=== PATIENT | female | born 1960 | race Caucasian/White ===

== ENCOUNTER 2018-08-27 20:45 | Inpatient (IN) | payer MEDICAID, MEDICARE, OTHER ==
[~2018-08-27] VITALS: Ht 182.9 cm; Wt 77.1 kg
[~2018-08-27 20:45] MED LIST: AMBIEN10 M1 ORAL; ARMOUR THYROID30 MG ORAL; IBUPROFEN600 MG ORAL; LAMICTAL150 MG ORAL; OXYCODONE IR15 MG ORAL; RESTORIL30 MG ORAL; ROBAXIN500 MG PO; SUBOXONE 4 MG-1 EACH SL; VALIUM10 MG ORAL; VITAMIN D400 INTLU ORAL
[2018-08-27] MEDS ORDERED: Morphine Sulfate 4mg/ml Inj (IV USE ONLY) IVP ONE ×2 (21:00→21:30)
--- NOTE | 2018-08-27 21:00 | NUR ---
ED Nurse Note: iv access established. blood collected; sent down to lab.
--- NOTE | 2018-08-27 21:03 | Emergency Room Report ---
History of Present Illness General Chief Complaint: Abdominal Pain Source: Patient Present Illness HPI Is is a 58-year-old female with history of depression. She presents with chief complaint abdominal pain. Onset for a few weeks now. Has been intermittent on and off. She thought it was indigestion. Pain is mostly epigastric and right upper quadrant. For the last 2 days ago more constant. Waiting to the back. Now she has nausea and vomiting. Also very itching. Pain is 9 out of 10. Nothing made it better. Any movement or palpation made it worse. Eating made it worse. Allergies: Coded Allergies: MEPERIDINE (Verified Allergy, Mild, Rash, 01/06/17) itching skin severe Patient History Past Medical History: see triage record, old chart reviewed, psych hx Past Surgical History: none Pertinent Family History: none Social History: Denies: smoking Last Menstrual Period: 2008 Now: No Immunizations: other Reviewed Nursing Documentation: PMH: Agreed; PSxH: Agreed Review of Systems Eye: Denies: eye pain, blurred vision ENT: Denies: ear pain, nose congestion, throat swelling Respiratory: Denies: cough, shortness of breath Cardiovascular: Denies: chest pain, palpitations Gastrointestinal: Reports: abdominal pain, nausea, vomiting; Denies: diarrhea Musculoskeletal: Denies: back pain, joint pain Skin: Denies: rash Neurological: Denies: headache, numbness Endocrine: Denies: increased thirst, increased urine Hematologic/Lymphatic: Denies: easy bruising All Other Systems: negative except mentioned in HPI Physical Exam Vital Signs Date Time Temp Pulse Resp B/P (MAP) Pulse Ox O2 Delivery O2 Flow Rate FiO2 08/27/18 20:47 98.2 77 14 96 Room Air vital signs unremarkable Sp02 EP Interpretation: reviewed, normal General Appearance: well appearing, no apparent distress, alert Head: normocephalic, atraumatic Eyes: bilateral eye PERRL, bilateral eye EOMI ENT: hearing grossly normal, normal pharynx Neck: full range of motion, supple, no meningismus Respiratory: chest non-tender, lungs clear, normal breath sounds Cardiovascular #1: regular rate, rhythm, no murmur Gastrointestinal: normal bowel sounds, no mass, no organomegaly, no bruit, non- distended, tenderness - Upper quadrants Musculoskeletal: back normal, gait/station normal, normal range of motion Psychiatric: mood/affect normal Skin: warm/dry, other - Mild jaundice Medical Decision Making Diagnostic Impression: Primary Impression: Choledocholithiasis ER Course Right fifth toe: She has lateral deviation of the toe at the MTP joint. Dorsalis pedis pulse normal. Sensation normal. Patient presents with right upper quadrant pain. She does have some mild jaundice and labs showed an obstructed process in the biliary tree. CT scan showed distended gallbladder and distended common bile duct. No obvious stone. I see no evidence of any infection yet. No evidence of any cholecystitis or cholangitis. Patient will be admitted for further workup. Discussed the case with her primary care Dr. Lamb. I faxed him the CT scan report and labs. I discussed the case with who will admit for Dr. Hunter. Lab Results Impression labs with elevated bilirubin and LFTs CT/MRI/US Diagnostic Results CT/MRI/US Diagnostic Results : Imaging Test Ordered: CT abdomen and pelvis Impression Read by radiologist. Distended gallbladder with distended common bile duct and biliary tree. No obvious stone. Last Vital Signs Date Time Temp Pulse Resp B/P (MAP) Pulse Ox O2 Delivery O2 Flow Rate FiO2 08/27/18 20:47 98.2 77 14 96 Room Air Status: improved Disposition: ADMITTED INPATIENT Condition: Serious Selvin Greene MD August 27, 2018 21:03
[2018-08-27 21:05] VITALS: BP 115/66
--- NOTE | 2018-08-27 21:05 | NUR ---
ED Nurse Note: Patient walked in to ER c/o severe abdominal pain 12/19 since this morning, N/V/D. AAO x4, VSS at this time. Per patienrt she has some kind of skin infection and due to that she has leisions all over her body.
[2018-08-27 21:20] LABS: BASOPHILS % (AUTO) 0.6 % (0.0-2.0); HEMATOCRIT 40.3 % (37.0-47.0); HEMOGLOBIN 14.1 G/DL (12.0-16.0); LYMPHOCYTES % (AUTO) 17.4 % (20.0-45.0); MEAN CORPUSCULAR VOLUME 85 FL (80-99); MONOCYTES % (AUTO) 9.4 % (1.0-10.0); NEUTROPHILS % (AUTO) 70.6 % (45.0-75.0); PLATELET COUNT 221 K/UL (150-450); RED BLOOD COUNT 4.73 M/UL (4.20-5.40); RED CELL DISTRIBUTION WIDTH 12.5 % (11.6-14.8)
[2018-08-27 21:27] LABS: ANION GAP 11 mmol/L (5-15); BLOOD UREA NITROGEN 13 mg/dL (7-18); CALCIUM 9.5 MG/DL (8.5-10.1); CARBON DIOXIDE 24 MMOL/L (21-32); CHLORIDE 101 MMOL/L (98-107); POTASSIUM 3.5 MMOL/L (3.5-5.1); SODIUM 136 MMOL/L (136-145)
[2018-08-27 21:38] LABS: ALANINE AMINOTRANSFERASE 671 U/L (12-78); ALBUMIN 3.5 G/DL (3.4-5.0); ALBUMIN/GLOBULIN RATIO 0.8 (1.0-2.7); ALKALINE PHOSPHATASE 313 U/L (46-116); ASPARTATE AMINO TRANSFERASE 132 U/L (15-37); BILIRUBIN,TOTAL 2.8 MG/DL (0.2-1.0)
[2018-08-27 21:41] LABS: BILIRUBIN,DIRECT 2.2 MG/DL (0.0-0.3)
--- NOTE | 2018-08-27 21:41 | NUR ---
ED Nurse Note: Patient was taken down for CT
[2018-08-27 22:24] LABS: APPEARANCE,URINE SLIGHTLY CLOUDY; BILIRUBIN, URINE 1+ (NEGATIVE); GLUCOSE, URINE (UA) NEGATIVE (NEGATIVE); KETONES,URINE NEGATIVE (NEGATIVE); LEUKOCYTE ESTERASE ,URINE 2+ (NEGATIVE); NITRITE,URINE NEGATIVE (NEGATIVE); PH,URINE 5 (4.5-8.0); PROTEIN,URINE 1+ (NEGATIVE); UROBILINOGEN,URINE 1 MG/DL (0.0-1.0)
[2018-08-27 22:25] LABS: COLOR,URINE AMBER
[2018-08-27] MEDS ORDERED: DiphenhydrAMINE 50mg/ml Inj IVP ONE (23:30)
--- NOTE | 2018-08-27 23:39 | NUR ---
ED Nurse Note: Patient was admited to Med Surg due to choledocholithiasis. AAO x4, VSS at this time, skin is dry,warm to touch. Patient was transfered by jeremie with all belongings.
--- NOTE | 2018-08-27 23:56 | History and Physical ---
History of Present Illness General Date patient seen: August 27, 2018 Time patient seen: 11:30 Reason for Hospitalization: Abdominal Pain Present Illness HPI Patient with hx hypothyoridism presented with abdominal pain for 2-3 weeks, intermittent, worse now. co itching of skin. hx remote use of drugs but states no hepatitis. no hosp admission except tonsillectomy as kid. last surgery for right arm bones 4 years and had MRI 3 years ago for lower back. otherwise healthy and gets physical therapy. now havingt diarrhea for 1-2 days. no fever. yellow urine. some nausea/vomiting since yesterday. pain is bothersome.no hx gall stones before. no alcohol/smoking any more now- quit years ago. dw ER physician- Shows dilated CBD with gall stones. report pending in system Allergies: Coded Allergies: MEPERIDINE (Verified Allergy, Mild, Rash, 01/06/17) itching skin severe Medication History Scheduled Thyroid* ([place] Thyroid*), 180 MG ORAL DAILY, (Reported) Discontinued Medications Buprenorphine Hcl/Naloxone Hcl (Suboxone 4 Mg-1 Mg Sl Film), 1 EACH SL daily, ( Reported) Discontinued Reason: Therapy completed Diazepam* (Valium*), 10 MG ORAL TID PRN for ANXIETY, (Reported) Discontinued Reason: Therapy completed Ibuprofen* (Motrin*), 800 MG ORAL Q6H PRN for For Pain, (Reported) Discontinued Reason: Therapy completed Lamotrigine* (Lamictal*), 300 MG ORAL day, (Reported) Discontinued Reason: Therapy completed Methocarbamol* (Robaxin*), 500 MG PO prn PRN for Breakthrough Pain, (Reported) Discontinued Reason: Therapy completed Vitamin D (Vitamin D3), 50,000 UNITS ORAL weekly, (Reported) Discontinued Reason: Therapy completed Zolpidem Tartrate* (Ambien*), 10 MG ORAL HS PRN for Insomnia, (Reported) Discontinued Reason: Therapy completed Medications Narrative Armor thryoid only Patient History History Provided By: Patient Healthcare decision maker Resuscitation status Full Advanced Directive on File Patient History Narrative Abd pain - worse recently. no chronic medical problems except back pain and hypothyroidism. no hosp admissions. no hx heart ds. remote use of drugs. Review of Systems Constitutional: Reports: no symptoms Eye: Reports: no symptoms ENT: Reports: no symptoms Respiratory: Reports: no symptoms Cardiovascular: Reports: no symptoms Gastrointestinal: Reports: abdominal pain, diarrhea, nausea, vomiting Genitourinary: Reports: no symptoms Musculoskeletal: Reports: back pain, other Skin: Reports: dryness, other Psychiatric: Reports: no symptoms Neurological: Reports: no symptoms Endocrine: Reports: no symptoms Hematologic/Lymphatic: Reports: no symptoms ROS Narrative abd pain/GI symptoms. itching +. no other symptoms than chronic back and right arm pain Physical Exam General Appearance: WD/WN, no apparent distress, alert, alert oriented x3 Lines, tubes and drains: peripheral HEENT: normocephalic, atraumatic, PERRL, EOMI, supple, no JVD, other Neck: non-tender, supple, normal inspection Respiratory/Chest: lungs clear, normal breath sounds, no respiratory distress Cardiovascular/Chest: normal rate, regular rhythm, regularly irregular, no gallop/murmur Abdomen: normal bowel sounds, soft, no organomegaly, tender, other Extremities: non-tender, no calf tenderness, no edema Skin Exam: warm/dry, jaundice, other Neurologic: b2b outside sales representative II-XII grossly normal, no motor/sensory deficits, oriented x 3 , responsive, normal mood/affect Musculoskeletal: normal muscle bulk Physical Exam Narrative Alert, involved in discussion. has positive icterus and itching signs. Old surgery scar over neck and right arm tenderness in epigastric area and RUQ- negative wade sign Last 24 Hour Vital Signs Date Time Temp Pulse Resp B/P (MAP) Pulse Ox O2 Delivery O2 Flow Rate FiO2 08/27/18 23:37 98.0 82 22 134/68 98 Room Air 08/27/18 21:05 98.2 14 115/66 96 Room Air 08/27/18 21:05 77 14 Room Air 08/27/18 20:47 98.2 77 14 96 Room Air Laboratory Tests Test 08/27/18 21:00 08/27/18 22:10 White Blood Count 7.0 K/UL (4.8-10.8) Red Blood Count 4.73 M/UL (4.20-5.40) Hemoglobin 14.1 G/DL (12.0-16.0) Hematocrit 40.3 % (37.0-47.0) Mean Corpuscular Volume 85 FL (80-99) Mean Corpuscular Hemoglobin 29.8 PG (27.0-31.0) Mean Corpuscular Hemoglobin Concent 34.9 G/DL (32.0-36.0) Red Cell Distribution Width 12.5 % (11.6-14.8) Platelet Count 221 K/UL (150-450) Mean Platelet Volume 6.2 FL (6.5-10.1) L Neutrophils (%) (Auto) 70.6 % (45.0-75.0) Lymphocytes (%) (Auto) 17.4 % (20.0-45.0) L Monocytes (%) (Auto) 9.4 % (1.0-10.0) Eosinophils (%) (Auto) 2.0 % (0.0-3.0) Basophils (%) (Auto) 0.6 % (0.0-2.0) Prothrombin Time 10.7 SEC (9.30-11.50) Prothromb Time International Ratio 1.0 (0.9-1.1) Activated Partial Thromboplast Time 29 SEC (23-33) Sodium Level 136 MMOL/L (136-145) Potassium Level 3.5 MMOL/L (3.5-5.1) Chloride Level 101 MMOL/L (98-107) Carbon Dioxide Level 24 MMOL/L (21-32) Anion Gap 11 mmol/L (5-15) Blood Urea Nitrogen 13 mg/dL (7-18) Creatinine 1.0 MG/DL (0.55-1.30) Estimat Glomerular Filtration Rate 56.8 mL/min (>60) Glucose Level 158 MG/DL (74-106) H Calcium Level 9.5 MG/DL (8.5-10.1) Total Bilirubin 2.8 MG/DL (0.2-1.0) H Direct Bilirubin 2.2 MG/DL (0.0-0.3) H Aspartate Amino Transf (AST/SGOT) 132 U/L (15-37) H Alanine Aminotransferase (ALT/SGPT) 671 U/L (12-78) H Alkaline Phosphatase 313 U/L (46-116) H Total Protein 7.8 G/DL (6.4-8.2) Albumin 3.5 G/DL (3.4-5.0) Globulin 4.3 g/dL Albumin/Globulin Ratio 0.8 (1.0-2.7) L Lipase 283 U/L (73-393) Urine Color Angela Urine Appearance Slightly cloudy Urine pH 5 (4.5-8.0) Urine Specific [place] 1.020 (1.005-1.035) Urine Protein 1+ (NEGATIVE) H Urine Glucose (UA) Negative (NEGATIVE) Urine Ketones Negative (NEGATIVE) Urine Blood 2+ (NEGATIVE) H Urine Nitrite Negative (NEGATIVE) Urine Bilirubin 1+ (NEGATIVE) H Urine Ictotest Positive (NEGATIVE) Urine Urobilinogen 1 MG/DL (0.0-1.0) H Urine Leukocyte Esterase 2+ (NEGATIVE) H Urine RBC 2-4 /HPF (0 - 2) H Urine WBC 2-4 /HPF (0 - 2) Urine Squamous Epithelial Cells Moderate /LPF (NONE/OCC) H Urine Bacteria Few /HPF (NONE) Urine Opiates Screen Positive (NEGATIVE) H Urine Barbiturates Screen Negative (NEGATIVE) Phencyclidine (PCP) Screen Negative (NEGATIVE) Urine Amphetamines Screen Negative (NEGATIVE) Urine Benzodiazepines Screen Negative (NEGATIVE) Urine Cocaine Screen Negative (NEGATIVE) Urine Marijuana (THC) Screen Negative (NEGATIVE) Height (Feet): 5 Height (Inches): 10.00 Weight (Pounds): 170 Assessment/Plan Problem List: (1) Choledocholithiasis ICD Codes: K80.50 - Calculus of bile duct without cholangitis or cholecystitis without obstruction SNOMED: [id number] Assessment/Plan: 1. abd pain with choledocholithiasis - admit to hospital. Keep NPO, IV Fluids, pain management. MRCP, GI consult in morning. consider Surgery consult. No wbc/fever/symptoms for 2-3 weeks. no gross need for IV Antibiotics. monitor off antibiotics. 2. Hypothyroidism; hold home meds 3. hx Chronic pain- narcotic use- old med list include suboxone. But now has acute pain and NPO. treat 4.hx Back pain 5. hx Remote drug use/ denies IV , hepatitis C Graham Ross MD August 27, 2018 23:56
[2018-08-28 00:13] VITALS: BP 117/77
[2018-08-28] MEDS ORDERED: Hydromorphone 0.5mg/0.5ml inj IVP PRN (00:15)
[2018-08-28] MEDS ORDERED: HYDROmorphone 1mg/ml Carpuject IVP PRN ×2 (01:30→05:30)
[2018-08-28] MEDS: HYDROmorphone 1mg/ml Carpuject IVP PRN ×5 (02:32→19:56)
[2018-08-28 04:00] VITALS: BP 112/74
[2018-08-28 08:00] VITALS: BP 100/57
--- NOTE | 2018-08-28 08:00 | NUR ---
NURSE NOTES:Received report fr.Rosario deutsch.patient in bed,a/ox4,room air,bed locked,iv site patent.no c/o pain just medicated by night nurse.remains npo.will continue current plan of care.
--- NOTE | 2018-08-28 08:25 | NUR ---
NURSE NOTES:Seen by /laura.orders carried out.
--- NOTE | 2018-08-28 10:01 | Diagnostic Imaging Report ---
Indication: Abdominal pain Technique: Continuous helical transaxial imaging of the abdomen and pelvis was obtained from the lung bases to the pubic symphysis. No intravenous contrast was administered. Coronal 2-D reformats were also obtained. Automatic Exposure Control was utilized. Total Dose length Product (DLP): 799.[address] Dose Index Volume (CTDIvol): 15.23 mGy Comparison: none Findings: The biliary ducts are markedly dilated. The CBD is 2.2 cm. There are small gallstones present. Intrahepatic biliary ducts are moderately distended as well. There may be small stones in the distal CBD, but this is not well-visualized on the current study and may be confirmed on MRCP and/or ERCP. Lung bases are essentially clear. There is no nephrolithiasis identified. There is no free fluid. The appendix is normal and retrocecal in location. Bladder is unremarkable. There is no free fluid. IMPRESSION: Severe biliary ductal dilatation. This requires further evaluation. Cholelithiasis suspected. [facility] has communicated the preliminary results to the Emergency Department. Their findings are largely concordant with this report. The CT scanner at [facility] is accredited by the [employer] and the scans are performed using dose optimization techniques as appropriate to a performed exam including Automatic Exposure control.
--- NOTE | 2018-08-28 11:28 | GI Initial Consult Note ---
History of Present Illness General Date patient seen: August 28, 2018 Time patient seen: 11:28 Reason for Hospitalization: Abdominal Pain Referring physician: KE Reason for Consultation: ABDOMINAL PAIN Present Illness LUKASZ Castaneda is a 58-year-old female with history of depression. She presents with chief complaint abdominal pain. Onset for a few weeks now. Has been intermittent on and off. She thought it was indigestion. Pain is mostly epigastric and right upper quadrant. For the last 2 days ago more constant. Waiting to the back. Now she has nausea and vomiting. Also very itching. Pain is 9 out of 10. Nothing made it better. Any movement or palpation made it worse. Eating made it worse. GI consulted for worsening abdominal pain. Patient seen, awake alert and oriented x4 no apparent distress. Patient reported of right upper quadrant pain with generalized radiation all around the abdominal region. The patient states that she has had this pain for over a month, however the past couple days have progressively gotten severe and worse. Abdominal pelvis CT was performed in the emergency room, noted that the common bile duct was markedly dilated at 2.2 cm with the presence of cholelithiasis. Labs reviewed; total bilirubin of 2.8, AST of 132, ALT of 671 and alkaline phosphatase of 313. The patient has no history of endoscopic or colonoscopy. Home Meds Reported Medications Thyroid* (ARMOUR THYROID*) 30 Mg Tablet, 180 MG ORAL DAILY, TAB 0 Refills 01/06/17 Discontinued Reported Medications Buprenorphine Hcl/Naloxone Hcl (SUBOXONE 4 MG-1 MG SL FILM) 1 Each Film, 1 EACH SL daily, FILM 08/12/17 Zolpidem Tartrate* (AMBIEN*) 10 Mg Tablet, 10 MG ORAL HS PRN for Insomnia, TAB 08/12/17 Diazepam* (VALIUM*) 10 Mg Tablet, 10 MG ORAL TID PRN for ANXIETY, #30 TAB 0 Refills 08/12/17 Vitamin D (Vitamin D3) 400 Unit Tablet, 46902 UNITS ORAL weekly, TAB 01/11/17 Methocarbamol* (ROBAXIN*) 500 Mg Tablet, 500 MG PO prn PRN for Breakthrough Pain , #28 TAB 0 Refills 01/06/17 Ibuprofen* (MOTRIN*) 600 Mg Tablet, 800 MG ORAL Q6H PRN for For Pain, #30 TAB 0 Refills 01/06/17 Lamotrigine* (LAMICTAL*) 150 Mg Tablet, 300 MG ORAL day, #60 TAB 0 Refills 01/06/17 Med list reviewed/reconciled: Yes Allergies: Coded Allergies: MEPERIDINE (Verified Allergy, Mild, Rash, 01/06/17) itching skin severe Patient History PMH Narrative Past Medical History: see triage record, old chart reviewed, psych hx Past Surgical History: none Pertinent Family History: none Social History: Denies: smoking Last Menstrual Period: 2008 Now: No Immunizations: other Reviewed Nursing Documentation: PMH: Agreed; PSxH: Agreed Social History: Denies: smoking, alcohol use, drug use, other Review of Systems All Other Systems: negative except mentioned in HPI Physical Exam Vital Signs Date Time Temp Pulse Resp B/P (MAP) Pulse Ox O2 Delivery O2 Flow Rate FiO2 08/27/18 20:47 98.2 77 14 96 Room Air 08/27/18 21:05 115/66 Sp02 EP Interpretation: reviewed, normal Labs Laboratory Tests Test 08/27/18 21:00 08/27/18 22:10 White Blood Count 7.0 K/UL (4.8-10.8) Red Blood Count 4.73 M/UL (4.20-5.40) Hemoglobin 14.1 G/DL (12.0-16.0) Hematocrit 40.3 % (37.0-47.0) Mean Corpuscular Volume 85 FL (80-99) Mean Corpuscular Hemoglobin 29.8 PG (27.0-31.0) Mean Corpuscular Hemoglobin Concent 34.9 G/DL (32.0-36.0) Red Cell Distribution Width 12.5 % (11.6-14.8) Platelet Count 221 K/UL (150-450) Mean Platelet Volume 6.2 FL (6.5-10.1) L Neutrophils (%) (Auto) 70.6 % (45.0-75.0) Lymphocytes (%) (Auto) 17.4 % (20.0-45.0) L Monocytes (%) (Auto) 9.4 % (1.0-10.0) Eosinophils (%) (Auto) 2.0 % (0.0-3.0) Basophils (%) (Auto) 0.6 % (0.0-2.0) Prothrombin Time 10.7 SEC (9.30-11.50) Prothromb Time International Ratio 1.0 (0.9-1.1) Activated Partial Thromboplast Time 29 SEC (23-33) Sodium Level 136 MMOL/L (136-145) Potassium Level 3.5 MMOL/L (3.5-5.1) Chloride Level 101 MMOL/L (98-107) Carbon Dioxide Level 24 MMOL/L (21-32) Anion Gap 11 mmol/L (5-15) Blood Urea Nitrogen 13 mg/dL (7-18) Creatinine 1.0 MG/DL (0.55-1.30) Estimat Glomerular Filtration Rate 56.8 mL/min (>60) Glucose Level 158 MG/DL (74-106) H Calcium Level 9.5 MG/DL (8.5-10.1) Total Bilirubin 2.8 MG/DL (0.2-1.0) H Direct Bilirubin 2.2 MG/DL (0.0-0.3) H Aspartate Amino Transf (AST/SGOT) 132 U/L (15-37) H Alanine Aminotransferase (ALT/SGPT) 671 U/L (12-78) H Alkaline Phosphatase 313 U/L (46-116) H Total Protein 7.8 G/DL (6.4-8.2) Albumin 3.5 G/DL (3.4-5.0) Globulin 4.3 g/dL Albumin/Globulin Ratio 0.8 (1.0-2.7) L Lipase 283 U/L (73-393) Urine Color Angela Urine Appearance Slightly cloudy Urine pH 5 (4.5-8.0) Urine Specific [place] 1.020 (1.005-1.035) Urine Protein 1+ (NEGATIVE) H Urine Glucose (UA) Negative (NEGATIVE) Urine Ketones Negative (NEGATIVE) Urine Blood 2+ (NEGATIVE) H Urine Nitrite Negative (NEGATIVE) Urine Bilirubin 1+ (NEGATIVE) H Urine Ictotest Positive (NEGATIVE) Urine Urobilinogen 1 MG/DL (0.0-1.0) H Urine Leukocyte Esterase 2+ (NEGATIVE) H Urine RBC 2-4 /HPF (0 - 2) H Urine WBC 2-4 /HPF (0 - 2) Urine Squamous Epithelial Cells Moderate /LPF (NONE/OCC) H Urine Bacteria Few /HPF (NONE) Urine Opiates Screen Positive (NEGATIVE) H Urine Barbiturates Screen Negative (NEGATIVE) Phencyclidine (PCP) Screen Negative (NEGATIVE) Urine Amphetamines Screen Negative (NEGATIVE) Urine Benzodiazepines Screen Negative (NEGATIVE) Urine Cocaine Screen Negative (NEGATIVE) Urine Marijuana (THC) Screen Negative (NEGATIVE) General Appearance: well appearing, no apparent distress, alert Head: normocephalic EENT: PERRL/EOMI, normal ENT inspection Neck: supple Respiratory: normal breath sounds, no respiratory distress Cardiovascular: normal rate Gastrointestinal: normal inspection, non tender, soft, normal bowel sounds, non -distended Rectal: deferred Genitourinary: no CVA tenderness Musculoskeletal: normal inspection, back normal Neurologic: normal inspection, alert, oriented x3, responsive Psychiatric: normal inspection, judgement/insight normal, memory normal Skin: normal inspection, normal color, no rash, warm/dry, palpation normal, well hydrated Lymphatic: normal inspection, no adenopathy Current Medications Current Medications Medications (Trade) Dose Ordered Sig/Guillermina Route PRN Reason Start Time Stop Time Status Last Admin Dose Admin Acetaminophen (Tylenol) 650 mg Q4H PRN ORAL Mild Pain (Pain Scale 1-3) 08/28/18 00:15 09/27/18 00:14 Acetaminophen (Tylenol) 650 mg Q4H PRN ORAL fever 08/28/18 00:15 09/27/18 00:14 Dextrose (Dextrose 50%) 25 ml Q30M PRN IV Hypoglycemia 08/28/18 00:15 09/27/18 00:14 Dextrose (Dextrose 50%) 50 ml Q30M PRN IV Hypoglycemia 08/28/18 00:15 09/27/18 00:14 Diphenhydramine HCl (Benadryl) 25 mg Q6H PRN ORAL Itching 08/28/18 08:30 09/27/18 08:29 08/28/18 10:02 Famotidine (Pepcid I.v.) 20 mg Q12HR IVP 08/28/18 09:00 09/27/18 08:59 08/28/18 10:03 Hydromorphone HCl (Dilaudid) 1 mg Q4H PRN IVP Severe Pain (Pain Scale 7-10) 08/28/18 02:00 09/04/18 01:29 08/28/18 11:22 Ondansetron HCl (Zofran) 4 mg Q6H PRN IVP Nausea & Vomiting 08/28/18 00:15 09/27/18 00:14 08/28/18 07:13 Sodium Chloride 1,000 ml @ 150 mls/hr Q6H40M IVLG 08/28/18 01:02 09/27/18 01:01 08/28/18 00:30 GI: Plan Problems: (1) Choledocholithiasis Plan Abdominal pelvic CT reviewed, markedly dilated common bile duct 2.2 cm with the presence of cholelithiasis. MRCP taken, pending final read. ERCP scheduled for tomorrow. -Clear liquid diet, n.p.o. at midnight -Hold all blood thinners PRN transfusions PPI Zofran as needed Pain management We will follow with additional recommendations postprocedure Discussed with Dr. Contreras. Thank you for this patient referral, we will follow. The patient was seen and examined at bedside and all new and available data was reviewed in the patients chart. I agree with the above findings, impression and plan. (Patient seen earlier today. Signature stamp does not reflect patient encounter time.). - MD Ramona FergusonHu Hu [facility] CHICK[facility] VACCIN[facility] August 28, 2018 11:28
[2018-08-28 11:41] VITALS: BP 100/59
--- NOTE | 2018-08-28 11:56 | Diagnostic Imaging Report ---
Indication: Abdominal pain. Dilated biliary ducts Technique: MRI of the abdomen was performed in a 1.5 Rosina magnet. Pulse sequences obtained include coronal and axial T2 single shot fast spin echo breathhold and respiratory gated coronal T2 3-D M.R.C.P.; this data set was displayed in different projections or MIPs. In addition, multiple coronal oblique thin T2 weighted, fat saturated SE sequences obtained through the CBD. Comparison: CT 08/27/2018 Findings: The study confirms presence of multiple tiny stones within the CBD layering in the dependent portion of a very dilated CBD. The CBD measures about 2.2 cm. Gallbladder is distended. There are stones in the gallbladder as well with mild circumferential wall thickening. Intrahepatic biliary ducts are dilated. The main pancreatic duct is nondilated and appears unremarkable. There is no adrenal mass identified. The kidneys are unremarkable. There is no free fluid. IMPRESSION: Innumerable stones within a dilated 2.2 cm CBD. Intrahepatic biliary ductal dilatation. Cholelithiasis. Mild wall thickening.
--- NOTE | 2018-08-28 12:33 | General Progress Note ---
Assessment/Plan Assessment/Plan: #Choledocholithiasis -continue supportive care -MRCP results reviewed -GI eval appreciated, NPO after MN for possible ERCP -Surgery consulted #Hypothyroidism -cont thyroid armour Subjective Date patient seen: August 28, 2018 Time patient seen: 10:00 ROS Limited/Unobtainable: No Cardiovascular: Denies: chest pain Respiratory: Denies: cough Gastrointestinal/Abdominal: Reports: abdominal pain Genitourinary: Denies: burning Neurologic/Psychiatric: Denies: anxiety Allergies: Coded Allergies: MEPERIDINE (Verified Allergy, Mild, Rash, 01/06/17) itching skin severe Subjective Medicine follow up for choledocholithiasis, pain persists but improved but controlled with current pain regimen. Denies fever or chills. MRCP showed Innumerable stones within a dilated 2.2 cm CBD. Intrahepatic biliary ductal dilatation. Cholelithiasis. Mild wall thickening. Objective Last 24 Hour Vital Signs Date Time Temp Pulse Resp B/P (MAP) Pulse Ox O2 Delivery O2 Flow Rate FiO2 08/28/18 11:41 98.6 71 19 100/59 (73) 96 08/28/18 08:00 Room Air 08/28/18 08:00 99.3 81 19 100/57 (71) 95 08/28/18 04:00 98.0 72 112/74 (87) 08/28/18 03:02 98.2 08/28/18 01:00 98.2 08/28/18 00:13 98.2 72 117/77 (90) 08/27/18 23:57 Room Air 08/27/18 23:37 98.0 82 22 134/68 98 Room Air 08/27/18 21:05 98.2 14 115/66 96 Room Air 08/27/18 21:05 77 14 Room Air 08/27/18 20:47 98.2 77 14 96 Room Air Intake and Output 08/27/18 08/28/18 19:00 07:00 Intake Total 0 ml Balance 0 ml Intake Oral 0 ml # Voids 4 Laboratory Tests 08/27/18 21:00: White Blood Count 7.0, Red Blood Count 4.73, Hemoglobin 14.1, Hematocrit 40.3, Mean Corpuscular Volume 85, Mean Corpuscular Hemoglobin 29.8, Mean Corpuscular Hemoglobin Concent 34.9, Red Cell Distribution Width 12.5, Platelet Count 221, Mean Platelet Volume 6.2L, Neutrophils (%) (Auto) 70.6, Lymphocytes (%) (Auto) 17.4L, Monocytes (%) (Auto) 9.4, Eosinophils (%) (Auto) 2.0, Basophils (%) (Auto ) 0.6, Prothrombin Time 10.7, Prothromb Time International Ratio 1.0, Activated Partial Thromboplast Time 29, Sodium Level 136, Potassium Level 3.5, Chloride Level 101, Carbon Dioxide Level 24, Anion Gap 11, Blood Urea Nitrogen 13, Creatinine 1.0, Estimat Glomerular Filtration Rate 56.8, Glucose Level 158H, Calcium Level 9.5, Total Bilirubin 2.8H, Direct Bilirubin 2.2H, Aspartate Amino Transf (AST/SGOT) 132H, Alanine Aminotransferase (ALT/SGPT) 671H, Alkaline Phosphatase 313H, Total Protein 7.8, Albumin 3.5, Globulin 4.3, Albumin/ Globulin Ratio 0.8L, Lipase 283 08/27/18 22:10: Urine Color Angela, Urine Appearance Slightly cloudy, Urine pH 5, Urine Specific [place] 1.020, Urine Protein 1+H, Urine Glucose (UA) Negative, Urine Ketones Negative, Urine Blood 2+H, Urine Nitrite Negative, Urine Bilirubin 1+H, Urine Ictotest Positive, Urine Urobilinogen 1H, Urine Leukocyte Esterase 2+H, Urine RBC 2-4H, Urine WBC 2-4, Urine Squamous Epithelial Cells ModerateH, Urine Bacteria Few, Urine Opiates Screen PositiveH, Urine Barbiturates Screen Negative , Phencyclidine (PCP) Screen Negative, Urine Amphetamines Screen Negative, Urine Benzodiazepines Screen Negative, Urine Cocaine Screen Negative, Urine Marijuana (THC) Screen Negative Height (Feet): 5 Height (Inches): 10.00 Weight (Pounds): 170 General Appearance: no apparent distress, alert Cardiovascular: normal rate, regular rhythm Respiratory/Chest: lungs clear, normal breath sounds Abdomen: non tender, soft, no organomegaly Extremities: non-tender Ankur Carrington MD August 28, 2018 12:33
[2018-08-28 12:38] LABS: EOSINOPHILS % (AUTO) 1.9 % (0.0-3.0); HEMATOCRIT 39.2 % (37.0-47.0); LYMPHOCYTES % (AUTO) 24.8 % (20.0-45.0); MEAN CORPUSCULAR VOLUME 90 FL (80-99); MONOCYTES % (AUTO) 12.6 % (1.0-10.0); NEUTROPHILS % (AUTO) 59.8 % (45.0-75.0); PLATELET COUNT 210 K/UL (150-450); RED BLOOD COUNT 4.34 M/UL (4.20-5.40); RED CELL DISTRIBUTION WIDTH 13.1 % (11.6-14.8); WHITE BLOOD COUNT 4.9 K/UL (4.8-10.8)
[2018-08-28 12:55] LABS: ALANINE AMINOTRANSFERASE 490 U/L (12-78); ALBUMIN 3.1 G/DL (3.4-5.0); ALKALINE PHOSPHATASE 291 U/L (46-116); ANION GAP 9 mmol/L (5-15); ASPARTATE AMINO TRANSFERASE 85 U/L (15-37); BILIRUBIN,DIRECT 2.7 MG/DL (0.0-0.3); BILIRUBIN,TOTAL 3.6 MG/DL (0.2-1.0); BLOOD UREA NITROGEN 10 mg/dL (7-18); CARBON DIOXIDE 25 MMOL/L (21-32); CHLORIDE 106 MMOL/L (98-107); CREATININE 0.8 MG/DL (0.55-1.30); SODIUM 140 MMOL/L (136-145)
--- NOTE | 2018-08-28 13:18 | Consultation ---
History of Present Illness General Date patient seen: August 28, 2018 Reason for Hospitalization: Abdominal Pain Present Illness HPI This is a very pleasant 58-year-old female otherwise healthy who presented with acutely worsening abdominal pain rating to the back. Patient states that for the past month or so she is been having some epigastric right upper quadrant abdominal discomfort with radiation to the back. Over the past 1 to 2 days it has become acutely worse with nausea and one episode of nonbloody emesis. She was recently at her friend's house having dinner which time the pain was significantly worse and she decided to come to the emergency room for evaluation. In ED identified to have elevated LFTs and bilirubin. Admitted for care and management. CT scan demonstrated enlarged biliary ducts and gallstones. Surgery called to evaluate and assist with care. Patient seen, patient evaluated, chart reviewed. Patient states that currently she feels much better and the pain is tolerable controlled with medications but without the medications pain is 10 out of 10 sharp cramping epigastric right upper quadrant with radiation to the upper back Allergies: Coded Allergies: MEPERIDINE (Verified Allergy, Mild, Rash, 01/06/17) itching skin severe Medication History Scheduled Thyroid* (Niles Thyroid*), 180 MG ORAL DAILY, (Reported) Discontinued Medications Buprenorphine Hcl/Naloxone Hcl (Suboxone 4 Mg-1 Mg Sl Film), 1 EACH SL daily, ( Reported) Discontinued Reason: Therapy completed Diazepam* (Valium*), 10 MG ORAL TID PRN for ANXIETY, (Reported) Discontinued Reason: Therapy completed Ibuprofen* (Motrin*), 800 MG ORAL Q6H PRN for For Pain, (Reported) Discontinued Reason: Therapy completed Lamotrigine* (Lamictal*), 300 MG ORAL day, (Reported) Discontinued Reason: Therapy completed Methocarbamol* (Robaxin*), 500 MG PO prn PRN for Breakthrough Pain, (Reported) Discontinued Reason: Therapy completed Vitamin D (Vitamin D3), 50,000 UNITS ORAL weekly, (Reported) Discontinued Reason: Therapy completed Zolpidem Tartrate* (Ambien*), 10 MG ORAL HS PRN for Insomnia, (Reported) Discontinued Reason: Therapy completed Patient History History Provided By: Patient Healthcare decision maker Resuscitation status Full Code Advanced Directive on File Past Medical/Surgical History Past Medical/Surgical History: (1) Choledocholithiasis Review of Systems Review of Symptoms General ROS: no weight loss or fever Psychological ROS: no depression or mood changes, no memory loss Ophthalmic ROS: no visual changes or eye irritation ENT ROS: no nasal congestion, hearing loss, dizziness Allergy and Immunology ROS: no allergic symptoms or urticaria Hematological and Lymphatic ROS: no swollen glands, unusual bleeding or bruising Endocrine ROS: no polyuria, polydipsia, weight changes, temperature intolerance Respiratory ROS: no cough, shortness of breath, or wheezing Cardiovascular ROS: no chest pain or dyspnea on exertion Gastrointestinal ROS: abdominal pain, nno bright red blood in stool. Musculoskeletal ROS: no myalgias or arthralgias Neurological ROS: no TIA or stroke symptoms Dermatological ROS: no new or changing skin lesions, rashes or pruritis Physical Exam Physical Exam General appearance: alert, cooperative, no distress, appears stated age Head: Normocephalic, without obvious abnormality, atraumatic Eyes: conjunctivae/corneas clear. PERRL, EOM's intact. Fundi benign Throat: Lips, mucosa, and tongue normal. Teeth and gums normal Neck: supple, symmetrical, trachea midline, no adenopathy, thyroid: not enlarged, symmetric, no tenderness/mass/nodules, no carotid bruit and no JVD Lungs: clear to auscultation bilaterally Heart: regular rate and rhythm, S1, S2 normal, no murmur, click, rub or gallop Abdomen: soft, non-tender. Bowel sounds normal. No masses, no organomegaly Extremities: extremities normal, atraumatic, no cyanosis or edema Pulses: 2+ and symmetric Skin: Skin color, texture, turgor normal. No rashes or lesions Neurologic: Grossly normal Last 24 Hour Vital Signs Date Time Temp Pulse Resp B/P (MAP) Pulse Ox O2 Delivery O2 Flow Rate FiO2 08/28/18 11:41 98.6 71 19 100/59 (73) 96 08/28/18 08:00 Room Air 08/28/18 08:00 99.3 81 19 100/57 (71) 95 08/28/18 04:00 98.0 72 112/74 (87) 08/28/18 03:02 98.2 08/28/18 01:00 98.2 08/28/18 00:13 98.2 72 117/77 (90) 08/27/18 23:57 Room Air 08/27/18 23:37 98.0 82 22 134/68 98 Room Air 08/27/18 21:05 98.2 14 115/66 96 Room Air 08/27/18 21:05 77 14 Room Air 08/27/18 20:47 98.2 77 14 96 Room Air Intake and Output 08/27/18 08/28/18 19:00 07:00 Intake Total 0 ml Balance 0 ml Intake Oral 0 ml # Voids 4 Laboratory Tests Test 08/27/18 21:00 08/27/18 22:10 08/28/18 12:00 White Blood Count 7.0 K/UL (4.8-10.8) 4.9 K/UL (4.8-10.8) Red Blood Count 4.73 M/UL (4.20-5.40) 4.34 M/UL (4.20-5.40) Hemoglobin 14.1 G/DL (12.0-16.0) 13.0 G/DL (12.0-16.0) Hematocrit 40.3 % (37.0-47.0) 39.2 % (37.0-47.0) Mean Corpuscular Volume 85 FL (80-99) 90 FL (80-99) Mean Corpuscular Hemoglobin 29.8 PG (27.0-31.0) 30.0 PG (27.0-31.0) Mean Corpuscular Hemoglobin Concent 34.9 G/DL (32.0-36.0) 33.2 G/DL (32.0-36.0) Red Cell Distribution Width 12.5 % (11.6-14.8) 13.1 % (11.6-14.8) Platelet Count 221 K/UL (150-450) 210 K/UL (150-450) Mean Platelet Volume 6.2 FL (6.5-10.1) L 6.9 FL (6.5-10.1) Neutrophils (%) (Auto) 70.6 % (45.0-75.0) 59.8 % (45.0-75.0) Lymphocytes (%) (Auto) 17.4 % (20.0-45.0) L 24.8 % (20.0-45.0) Monocytes (%) (Auto) 9.4 % (1.0-10.0) 12.6 % (1.0-10.0) H Eosinophils (%) (Auto) 2.0 % (0.0-3.0) 1.9 % (0.0-3.0) Basophils (%) (Auto) 0.6 % (0.0-2.0) 1.0 % (0.0-2.0) Prothrombin Time 10.7 SEC (9.30-11.50) Prothromb Time International Ratio 1.0 (0.9-1.1) Activated Partial Thromboplast Time 29 SEC (23-33) Sodium Level 136 MMOL/L (136-145) 140 MMOL/L (136-145) Potassium Level 3.5 MMOL/L (3.5-5.1) 4.0 MMOL/L (3.5-5.1) Chloride Level 101 MMOL/L (98-107) 106 MMOL/L (98-107) Carbon Dioxide Level 24 MMOL/L (21-32) 25 MMOL/L (21-32) Anion Gap 11 mmol/L (5-15) 9 mmol/L (5-15) Blood Urea Nitrogen 13 mg/dL (7-18) 10 mg/dL (7-18) Creatinine 1.0 MG/DL (0.55-1.30) 0.8 MG/DL (0.55-1.30) Estimat Glomerular Filtration Rate 56.8 mL/min (>60) > 60 mL/min (>60) Glucose Level 158 MG/DL (74-106) H 94 MG/DL (74-106) Calcium Level 9.5 MG/DL (8.5-10.1) 9.0 MG/DL (8.5-10.1) Total Bilirubin 2.8 MG/DL (0.2-1.0) H 3.6 MG/DL (0.2-1.0) H Direct Bilirubin 2.2 MG/DL (0.0-0.3) H 2.7 MG/DL (0.0-0.3) H Aspartate Amino Transf (AST/SGOT) 132 U/L (15-37) H 85 U/L (15-37) H Alanine Aminotransferase (ALT/SGPT) 671 U/L (12-78) H 490 U/L (12-78) H Alkaline Phosphatase 313 U/L (46-116) H 291 U/L (46-116) H Total Protein 7.8 G/DL (6.4-8.2) 7.2 G/DL (6.4-8.2) Albumin 3.5 G/DL (3.4-5.0) 3.1 G/DL (3.4-5.0) L Globulin 4.3 g/dL Albumin/Globulin Ratio 0.8 (1.0-2.7) L Lipase 283 U/L (73-393) Urine Color Angela Urine Appearance Slightly cloudy Urine pH 5 (4.5-8.0) Urine Specific [place] 1.020 (1.005-1.035) Urine Protein 1+ (NEGATIVE) H Urine Glucose (UA) Negative (NEGATIVE) Urine Ketones Negative (NEGATIVE) Urine Blood 2+ (NEGATIVE) H Urine Nitrite Negative (NEGATIVE) Urine Bilirubin 1+ (NEGATIVE) H Urine Ictotest Positive (NEGATIVE) Urine Urobilinogen 1 MG/DL (0.0-1.0) H Urine Leukocyte Esterase 2+ (NEGATIVE) H Urine RBC 2-4 /HPF (0 - 2) H Urine WBC 2-4 /HPF (0 - 2) Urine Squamous Epithelial Cells Moderate /LPF (NONE/OCC) H Urine Bacteria Few /HPF (NONE) Urine Opiates Screen Positive (NEGATIVE) H Urine Barbiturates Screen Negative (NEGATIVE) Phencyclidine (PCP) Screen Negative (NEGATIVE) Urine Amphetamines Screen Negative (NEGATIVE) Urine Benzodiazepines Screen Negative (NEGATIVE) Urine Cocaine Screen Negative (NEGATIVE) Urine Marijuana (THC) Screen Negative (NEGATIVE) Height (Feet): 5 Height (Inches): 10.00 Weight (Pounds): 170 Medications Current Medications Medications (Trade) Dose Ordered Sig/Guillermina Route PRN Reason Start Time Stop Time Status Last Admin Dose Admin Acetaminophen (Tylenol) 650 mg Q4H PRN ORAL Mild Pain (Pain Scale 1-3) 08/28/18 00:15 09/27/18 00:14 Acetaminophen (Tylenol) 650 mg Q4H PRN ORAL fever 08/28/18 00:15 09/27/18 00:14 Dextrose (Dextrose 50%) 25 ml Q30M PRN IV Hypoglycemia 08/28/18 00:15 09/27/18 00:14 Dextrose (Dextrose 50%) 50 ml Q30M PRN IV Hypoglycemia 08/28/18 00:15 09/27/18 00:14 Diphenhydramine HCl (Benadryl) 25 mg Q6H PRN ORAL Itching 08/28/18 08:30 09/27/18 08:29 08/28/18 10:02 Famotidine (Pepcid I.v.) 20 mg Q12HR IVP 08/28/18 09:00 09/27/18 08:59 08/28/18 10:03 Hydromorphone HCl (Dilaudid) 1 mg Q4H PRN IVP Severe Pain (Pain Scale 7-10) 08/28/18 02:00 09/04/18 01:29 08/28/18 11:22 Ondansetron HCl (Zofran) 4 mg Q6H PRN IVP Nausea & Vomiting 08/28/18 00:15 09/27/18 00:14 08/28/18 07:13 Sodium Chloride 1,000 ml @ 150 mls/hr Q6H40M IVLG 08/28/18 01:02 09/27/18 01:01 08/28/18 12:35 Thyroid (Niles Thyroid) 180 mg ACBREAKFAST ORAL 08/29/18 06:30 09/28/18 06:29 Assessment/Plan Problem List: (1) Abdominal pain ICD Codes: R10.9 - Unspecified abdominal pain SNOMED: 21285771 (2) Cholecystitis with cholelithiasis Assessment & Plan: This is a 58-year-old female with cholecystitis and choledocholithiasis. Afebrile hemodynamically stable labs noted. CT scan with dilated common bile duct. MRCP with dilated common bile duct with a stones within the duct. N.p.o. IV fluids IV antibiotics Trend labs ERCP as per GI We will plan for cholecystectomy after ERCP completed Case discussed with patient and respect and alternatives of all interventions discussed at which pain patient states that she will not be comfortable leaving the hospital without definitive treatment. States that she is been dealing this for a fair amount of time and needs to move on with her life. ICD Codes: K80.10 - Calculus of gallbladder with chronic cholecystitis without obstruction SNOMED: 78969465, [id number] (3) Choledocholithiasis ICD Codes: K80.50 - Calculus of bile duct without cholangitis or cholecystitis without obstruction SNOMED: 121875269 Jose Francisco Sharma August 28, 2018 13:18
--- NOTE | 2018-08-28 13:39 | NUR ---
CASE RACHEL SPAULDINGW 58 Y/O FEMALE FROM HOME CAME TO [facility] CC:ABDOMINAL PAIN SI:CHOLEDOCHOLITHIASIS VS: BP 115/66, P 77, T 98.3, RR 14, SpO2 96 TOTAL BILIRUBIN 2.8, AST 132, ALT 671, ALK PHOS 313 ABDOMINAL MRI:Innumerable stones within a dilated 2.2 cm CBD. Intrahepatic biliary ductal dilatation. IS:ZOFARN 4mG IVP NS x1L IV MORPHINE SULFATE 4mg IVP BENADRYL 50mg IVP ADMITTED TO MED/SURG DCP: RETURN HOME
[2018-08-28 16:26] VITALS: BP 94/80
--- NOTE | 2018-08-28 19:30 | NUR ---
HAND-OFF: Report given to FRANCISCO RN.PATIENT STABLE.
--- NOTE | 2018-08-28 19:40 | NUR ---
NURSE NOTES: Received report from MALIKA Pedro. Patient sleeping. On room air. No signs of distress or labored breathing. Bed in lowest position with call light in reach. Will continue with plan of care.
[2018-08-28 20:00] VITALS: BP 103/62
[2018-08-29] VITALS (11 sets, daily range): BP systolic 101–116; BP diastolic 55–67
[2018-08-29] MEDS: HYDROmorphone 1mg/ml Carpuject IVP PRN ×4 (00:11→14:28)
[2018-08-29] MEDS ORDERED: Iothalamate Meglumine 60% 30ML INJ ONE ×2 (06:07→08:15)
--- NOTE | 2018-08-29 06:50 | General Progress Note ---
Assessment/Plan Problem List: (1) Abdominal pain ICD Codes: R10.9 - Unspecified abdominal pain SNOMED: 10619216 (2) Cholecystitis with cholelithiasis ICD Codes: K80.10 - Calculus of gallbladder with chronic cholecystitis without obstruction SNOMED: 62512639, 903868949 (3) Choledocholithiasis ICD Codes: K80.50 - Calculus of bile duct without cholangitis or cholecystitis without obstruction SNOMED: 121426881 Assessment/Plan: plan ERCP for today Subjective ROS Limited/Unobtainable: Yes Allergies: Coded Allergies: MEPERIDINE (Verified Allergy, Mild, Rash, 01/06/17) itching skin severe Objective Last 24 Hour Vital Signs Date Time Temp Pulse Resp B/P (MAP) Pulse Ox O2 Delivery O2 Flow Rate FiO2 08/29/18 00:00 98.7 67 18 116/61 (79) 97 08/28/18 21:00 Room Air 08/28/18 20:00 99.3 61 18 103/62 (76) 95 08/28/18 16:26 98.5 69 19 94/80 (85) 95 08/28/18 11:41 98.6 71 19 100/59 (73) 96 08/28/18 08:00 Room Air 08/28/18 08:00 99.3 81 19 100/57 (71) 95 Intake and Output 08/28/18 08/29/18 19:00 07:00 Intake Total 2550 ml Balance 2550 ml IV Total 1350 ml Other 1200 ml Laboratory Tests 08/28/18 12:00: White Blood Count 4.9, Red Blood Count 4.34, Hemoglobin 13.0, Hematocrit 39.2, Mean Corpuscular Volume 90, Mean Corpuscular Hemoglobin 30.0, Mean Corpuscular Hemoglobin Concent 33.2, Red Cell Distribution Width 13.1, Platelet Count 210, Mean Platelet Volume 6.9, Neutrophils (%) (Auto) 59.8, Lymphocytes (%) (Auto) 24.8, Monocytes (%) (Auto) 12.6H, Eosinophils (%) (Auto) 1.9, Basophils (%) ( Auto) 1.0, Sodium Level 140, Potassium Level 4.0, Chloride Level 106, Carbon Dioxide Level 25, Anion Gap 9, Blood Urea Nitrogen 10, Creatinine 0.8, Estimat Glomerular Filtration Rate > 60, Glucose Level 94, Calcium Level 9.0, Total Bilirubin 3.6H, Direct Bilirubin 2.7H, Aspartate Amino Transf (AST/SGOT) 85H, Alanine Aminotransferase (ALT/SGPT) 490H, Alkaline Phosphatase 291H, Total Protein 7.2, Albumin 3.1L 08/29/18 05:50: White Blood Count [Pending], Red Blood Count [Pending], Hemoglobin [Pending], Hematocrit [Pending], Mean Corpuscular Volume [Pending], Mean Corpuscular Hemoglobin [Pending], Mean Corpuscular Hemoglobin Concent [Pending], Red Cell Distribution Width [Pending], Platelet Count [Pending], Mean Platelet Volume [ Pending], Neutrophils (%) (Auto) [Pending], Lymphocytes (%) (Auto) [Pending], Monocytes (%) (Auto) [Pending], Eosinophils (%) (Auto) [Pending], Basophils (%) (Auto) [Pending], Sodium Level [Pending], Potassium Level [Pending], Chloride Level [Pending], Carbon Dioxide Level [Pending], Blood Urea Nitrogen [Pending], Creatinine [Pending], Estimat Glomerular Filtration Rate [Pending], Glucose Level [Pending], Calcium Level [Pending], Total Bilirubin [Pending], Aspartate Amino Transf (AST/SGOT) [Pending], Alanine Aminotransferase (ALT/SGPT) [Pending] , Alkaline Phosphatase [Pending], Total Protein [Pending], Albumin [Pending], Prothrombin Time [Pending], Prothromb Time International Ratio [Pending], Activated Partial Thromboplast Time [Pending], Magnesium Level [Pending], Globulin [Pending], Thyroid Stimulating Hormone (TSH) [Pending] Height (Feet): 5 Height (Inches): 10.00 Weight (Pounds): 170 General Appearance: alert EENT: normal ENT inspection Neck: supple Cardiovascular: normal rate Respiratory/Chest: lungs clear Abdomen: non tender, soft Extremities: non-tender Osman Contreras MD August 29, 2018 06:50
--- NOTE | 2018-08-29 06:51 | Pre-Procedure Note/Attestation ---
Pre-Procedure Note/Attestation Complete Prior to Procedure Planned Procedure: not applicable Procedure Narrative: ercp Indications for Procedure Pre-Operative Diagnosis: choledocholithiasis Attestation I attest that I discussed the nature of the procedure; its benefits; risks and complications; and alternatives (and the risks and benefits of such alternatives ), prior to the procedure, with the patient (or the patient's legal outside sales representative). I attest that, if there was a reasonable possibility of needing a blood transfusion, the patient (or the patient's legal outside sales representative) was given the [facility] standardized written summary, pursuant to the Gene Aleksandra Blood Safety Act ([place] Health and Safety Code # 1645, as amended). I attest that I re-evaluated the patient just prior to the surgery and that there has been no change in the patient's H&P, except as documented below: Osman Contreras MD August 29, 2018 06:51
[2018-08-29 07:08] LABS: ALANINE AMINOTRANSFERASE 353 U/L (12-78); ALBUMIN 2.8 G/DL (3.4-5.0); ALBUMIN/GLOBULIN RATIO 0.7 (1.0-2.7); ALKALINE PHOSPHATASE 263 U/L (46-116); ANION GAP 9 mmol/L (5-15); ASPARTATE AMINO TRANSFERASE 53 U/L (15-37); BASOPHILS % (AUTO) 0.7 % (0.0-2.0); BILIRUBIN,TOTAL 1.6 MG/DL (0.2-1.0); BLOOD UREA NITROGEN 7 mg/dL (7-18); CALCIUM 9.2 MG/DL (8.5-10.1); CARBON DIOXIDE 26 MMOL/L (21-32); CHLORIDE 106 MMOL/L (98-107); CREATININE 0.7 MG/DL (0.55-1.30); EOSINOPHILS % (AUTO) 2.1 % (0.0-3.0); HEMATOCRIT 38.1 % (37.0-47.0); HEMOGLOBIN 12.6 G/DL (12.0-16.0); MEAN CORPUSCULAR VOLUME 91 FL (80-99); MONOCYTES % (AUTO) 8.2 % (1.0-10.0); NEUTROPHILS % (AUTO) 66.1 % (45.0-75.0); PLATELET COUNT 201 K/UL (150-450); POTASSIUM 3.8 MMOL/L (3.5-5.1); RED BLOOD COUNT 4.18 M/UL (4.20-5.40); RED CELL DISTRIBUTION WIDTH 13.2 % (11.6-14.8); SODIUM 141 MMOL/L (136-145); WHITE BLOOD COUNT 4.9 K/UL (4.8-10.8)
[2018-08-29 07:10] LABS: BILIRUBIN,DIRECT 0.8 MG/DL (0.0-0.3)
--- NOTE | 2018-08-29 07:41 | NUR ---
HAND-OFF: Report given to MALIKA Pedro.
--- NOTE | 2018-08-29 07:55 | NUR ---
NURSE NOTES:bedside rounds done,report given by jade rn.patient awake a/ox4,room air,iv site patent,remains npo,being pickle pumper by oriana(transporter tech)for ercp.patient stable no c/o pain.
[2018-08-29] MEDS ORDERED: Lidocaine 1% MPF 10mg/ml 5ml ONE (08:00)
[2018-08-29] MEDS ORDERED: fentaNYL 100 mcg/2 mL IV ONE (08:00)
[2018-08-29] MEDS ORDERED: NS 500ML IVPB ONE (08:00)
[2018-08-29] MEDS ORDERED: LR 1000ml ONE (08:00)
[2018-08-29] MEDS ORDERED: Propofol 200mg/20ml IV ONE (08:00)
[2018-08-29] MEDS ORDERED: Midazolam 2mg/2ml Inj ONE (08:00)
--- NOTE | 2018-08-29 08:56 | Endoscopy Procedure Note ---
Endoscopy Procedure Note General Indication for Procedure: choledocholithiasis Procedures Performed: ERCP Operative Findings/Diagnosis: same Specimen: none Pt Tolerated Procedure Well: Yes Estimated Blood Loss: none Anesthesia Anesthesiologist: [place] Anesthesia: MAC Inserted Devices Implant(s) used?: No GI Core Measures 50 yrs or older w/o bx or poly: Not Applicable 10yrs. F/U recommended: Not Applicable Osman Contreras MD August 29, 2018 08:56
--- NOTE | 2018-08-29 09:05 | Immediate Post-Op Evaluation ---
Immediate Post-Op Evalulation Immediate Post-Op Evalulation Procedure: ERCP Date of Evaluation: August 29, 2018 Time of Evaluation: 09:04 IV Fluids: 600 Blood Pressure Systolic: 108 Blood Pressure Diastolic: 65 Pulse Rate: 75 Respiratory Rate: 12 O2 Sat by Pulse Oximetry: 99 Temperature (Fahrenheit): 97.4 Pain Score (1-10): 0 Nausea: No Vomiting: No Complications none Patient Status: awake, reacts, patent Hydration Status: adequate Drug: none Nette Arnold CRNA August 29, 2018 09:05
--- NOTE | 2018-08-29 09:08 | Anethesia Preoperative Eval ---
Anesthesia Pre-op PMH/ROS General Date of Evaluation: August 29, 2018 Time of Evaluation: 08:00 Anesthesiologist: karolina ASA Score: ASA 2 Mallampati Score Class I : Soft palate, uvula, fauces, pillars visible Class II: Soft palate, uvula, fauces visible Class III: Soft palate, base of uvula visible Class IV: Only hard plate visible Mallampati Classification: Class II Surgeon: lane Diagnosis: choledocholithesis Surgical Procedure: ERCP Family History: no anesthesia problems Allergies: Coded Allergies: MEPERIDINE (Verified Allergy, Mild, Rash, 01/06/17) itching skin severe Medications: see eMAR Patient NPO?: Yes NPO Date: August 29, 2018 NPO Time: 00:01 Past Medical History Cardiovascular: Denies: HTN, CAD, [place], valve dz, arrhythmia, other Gastrointestinal/Genitourinary: Denies: GERD, CRI, ESRD, other Neurologic/Psychiatric: Reports: depression/anxiety; Denies: dementia, CVA, TIA, other Endocrine: Reports: hypothyroidism; Denies: DM, steroids, other HEENT: Denies: cataract (L), cataract (R), glaucoma, ALGAACIQ (L), ALGAACIQ (R), other Hematology/Immune: Denies: anemia, DVT, bleeding disorder, other PMH Narrative: choledocholithesis Anesthesia Pre-op Phys. Exam Physician Exam Last Vital Signs Date Time Temp Pulse Resp B/P (MAP) Pulse Ox O2 Delivery O2 Flow Rate FiO2 08/29/18 07:58 97.9 63 18 106/63 (77) 97 08/29/18 07:55 Room Air Constitutional: NAD Neurologic: CN 2-12 intact Cardiovascular: RRR Respiratory: CTA Gastrointestinal: S/NT/ND Airway Exam Mallampati Classification 2 Mallampati Score: Class II MO: full ROM: full Dentures: no upper, no lower Anesthesia Pre-op A/P Labs Hematology Test 08/28/18 12:00 08/29/18 05:50 White Blood Count 4.9 K/UL (4.8-10.8) 4.9 K/UL (4.8-10.8) Red Blood Count 4.34 M/UL (4.20-5.40) 4.18 M/UL (4.20-5.40) L Hemoglobin 13.0 G/DL (12.0-16.0) 12.6 G/DL (12.0-16.0) Hematocrit 39.2 % (37.0-47.0) 38.1 % (37.0-47.0) Mean Corpuscular Volume 90 FL (80-99) 91 FL (80-99) Mean Corpuscular Hemoglobin 30.0 PG (27.0-31.0) 30.1 PG (27.0-31.0) Mean Corpuscular Hemoglobin Concent 33.2 G/DL (32.0-36.0) 33.0 G/DL (32.0-36.0) Red Cell Distribution Width 13.1 % (11.6-14.8) 13.2 % (11.6-14.8) Platelet Count 210 K/UL (150-450) 201 K/UL (150-450) Mean Platelet Volume 6.9 FL (6.5-10.1) 6.8 FL (6.5-10.1) Neutrophils (%) (Auto) 59.8 % (45.0-75.0) 66.1 % (45.0-75.0) Lymphocytes (%) (Auto) 24.8 % (20.0-45.0) 23.0 % (20.0-45.0) Monocytes (%) (Auto) 12.6 % (1.0-10.0) H 8.2 % (1.0-10.0) Eosinophils (%) (Auto) 1.9 % (0.0-3.0) 2.1 % (0.0-3.0) Basophils (%) (Auto) 1.0 % (0.0-2.0) 0.7 % (0.0-2.0) Coagulation Test 08/29/18 05:50 Prothrombin Time 10.1 SEC (9.30-11.50) Prothromb Time International Ratio 1.0 (0.9-1.1) Activated Partial Thromboplast Time 29 SEC (23-33) Chemistry Test 08/28/18 12:00 08/29/18 05:50 Sodium Level 140 MMOL/L (136-145) 141 MMOL/L (136-145) Potassium Level 4.0 MMOL/L (3.5-5.1) 3.8 MMOL/L (3.5-5.1) Chloride Level 106 MMOL/L (98-107) 106 MMOL/L (98-107) Carbon Dioxide Level 25 MMOL/L (21-32) 26 MMOL/L (21-32) Anion Gap 9 mmol/L (5-15) 9 mmol/L (5-15) Blood Urea Nitrogen 10 mg/dL (7-18) 7 mg/dL (7-18) Creatinine 0.8 MG/DL (0.55-1.30) 0.7 MG/DL (0.55-1.30) Estimat Glomerular Filtration Rate > 60 mL/min (>60) > 60 mL/min (>60) Glucose Level 94 MG/DL (74-106) 92 MG/DL (74-106) Calcium Level 9.0 MG/DL (8.5-10.1) 9.2 MG/DL (8.5-10.1) Total Bilirubin 3.6 MG/DL (0.2-1.0) H 1.6 MG/DL (0.2-1.0) H Direct Bilirubin 2.7 MG/DL (0.0-0.3) H 0.8 MG/DL (0.0-0.3) H Aspartate Amino Transf (AST/SGOT) 85 U/L (15-37) H 53 U/L (15-37) H Alanine Aminotransferase (ALT/SGPT) 490 U/L (12-78) H 353 U/L (12-78) H Alkaline Phosphatase 291 U/L (46-116) H 263 U/L (46-116) H Total Protein 7.2 G/DL (6.4-8.2) 6.6 G/DL (6.4-8.2) Albumin 3.1 G/DL (3.4-5.0) L 2.8 G/DL (3.4-5.0) L Magnesium Level 1.8 MG/DL (1.8-2.4) Globulin 3.8 g/dL Albumin/Globulin Ratio 0.7 (1.0-2.7) L Thyroid Stimulating Hormone (TSH) 1.580 uiU/mL (0.358-3.740) Studies Pre-op Studies: EKG - sr Risk Assessment & Plan Plan: mac Pre-Antibiotics Drug: none Nette Arnold CRNA August 29, 2018 09:08
[2018-08-29] MEDS ORDERED: fentaNYL 100 mcg/2 mL IV PRN (09:15)
--- NOTE | 2018-08-29 09:19 | 48 Hour Post Anesthesia Eval ---
Post Anesthesia Evaluation Procedure: ERCP Date of Evaluation: August 29, 2018 Time of Evaluation: 09:18 Blood Pressure Systolic: 112 0: 55 Pulse Rate: 54 Respiratory Rate: 14 O2 Sat by Pulse Oximetry: 98 Airway: patent Nausea: No Vomiting: No Hydration Status: adequate Cardiopulmonary Status: stable Mental Status/LOC: patient returned to baseline Post-Anesthesia Complications: none Follow-up care needed: N/A Nette Arnold CRNA August 29, 2018 09:19
--- NOTE | 2018-08-29 10:15 | Diagnostic Imaging Report ---
Indication: Abdominal pain. ERCP. Findings: Fluoroscopically captured images of the right upper quadrant of the abdomen demonstrate an endoscope with cannulation of the common bile duct and injection of contrast material. Fluoroscopic time 316 seconds. Fluoroscopic images demonstrating contrast opacification of intrahepatic biliary ducts which appear dilated. The CBD is also dilated. A stent was placed extending from the upper part of the CBD through the ampulla. Impression: ERCP as above
--- NOTE | 2018-08-29 10:30 | Procedure Note ---
DATE OF PROCEDURE: 08/29/2018 SURGEON: Osman Contreras M.D. REFERRING PHYSICIAN: Sri Hunter M.D. PROCEDURE: ERCP with sphincterotomy, stone removal, and stent placement. ANESTHESIA: Per OPERATING ROOM MANAGER, Nette Arnold. INSTRUMENT: Olympus adult flexible ERCP scope. INDICATION: Choledocholithiasis. REASON FOR PROCEDURE: The procedure, risks, benefits, and possible consequences, including hemorrhage, aspiration, perforation and infection, and alternative treatments, were explained to the patient/legal guardian by Dr. Osman Contreras and the patient/legal guardian understood and accepted these risks. PROCEDURE IN DETAIL: After informed consent was obtained and the patient was adequately sedated, ERCP scope was advanced from the mouth into the second portion of duodenum. Using a sphincterotome, common bile duct was selectively cannulated. Initial cholangiogram showed severely dilated duct to over 2 cm in size with multiple filling defects in the distal common bile duct. Then, over a guidewire, 95% sphincterotomy was performed. Then, a large balloon, 2 cm balloon was used to sweep the duct multiple times. Lots of stones and sludge was removed from distal common bile duct. After the stones were removed, we did perform balloon occlusion cholangiogram showed no further filling defect, but given we had a lot of stones removed from the common bile duct and there was a lot of inflammation at the ampulla we decided to put a stent for protection. A 10-Wolof 7 cm stent was successfully placed in the distal common bile duct. The patient tolerated the procedure very well without any complication. SUMMARY OF FINDINGS: Status post ERCP, sphincterotomy, multiple stones removal, severe dilated common bile duct, and finally stent placement. RECOMMENDATIONS: 1. Repeat labs. 2. Follow with Surgery for possible cholecystectomy. 3. Needs to come back in 6 to 8 weeks for stent removal as an outpatient. I want to thank Dr. Hunter for this kind referral. Osman Contreras M.D. DR: YANG JOB#: [id number] CC:
--- NOTE | 2018-08-29 10:39 | General Progress Note ---
Assessment/Plan Assessment/Plan: #Choledocholithiasis -continue supportive care -MRCP results reviewed -Plan for ERCP today -Resume diet once ok with GI/Surgery -Repeat LFTs in AM #Hypothyroidism -cont thyroid armour Subjective Date patient seen: August 29, 2018 Time patient seen: 07:45 Constitutional: Denies: chills, fever Cardiovascular: Denies: chest pain Respiratory: Denies: cough Gastrointestinal/Abdominal: Reports: abdominal pain Allergies: Coded Allergies: MEPERIDINE (Verified Allergy, Mild, Rash, 01/06/17) itching skin severe Subjective Medicine follow up for choledocholithiasis, persistent pain. No fever or chills. LFTs somewhat improved. Going for ERCP today. Objective Last 24 Hour Vital Signs Date Time Temp Pulse Resp B/P (MAP) Pulse Ox O2 Delivery O2 Flow Rate FiO2 08/29/18 09:25 97.2 53 16 111/60 95 Room Air 08/29/18 09:19 54 14 98 08/29/18 09:10 54 14 111/67 95 Room Air 08/29/18 09:05 54 15 112/55 96 Room Air 08/29/18 09:05 75 12 99 08/29/18 09:00 55 13 113/64 98 Room Air 08/29/18 08:56 97.4 58 14 108/59 98 Nasal Cannula 3 08/29/18 07:58 97.9 63 18 106/63 (77) 97 08/29/18 07:55 Room Air 08/29/18 04:00 98.1 65 17 108/60 (76) 96 08/29/18 00:00 98.7 67 18 116/61 (79) 97 08/28/18 21:00 Room Air 08/28/18 20:00 99.3 61 18 103/62 (76) 95 08/28/18 16:26 98.5 69 19 94/80 (85) 95 08/28/18 11:41 98.6 71 19 100/59 (73) 96 Intake and Output 08/28/18 08/29/18 19:00 07:00 Intake Total 2550 ml Balance 2550 ml IV Total 1350 ml Other 1200 ml # Voids 5 Laboratory Tests 08/28/18 12:00: White Blood Count 4.9, Red Blood Count 4.34, Hemoglobin 13.0, Hematocrit 39.2, Mean Corpuscular Volume 90, Mean Corpuscular Hemoglobin 30.0, Mean Corpuscular Hemoglobin Concent 33.2, Red Cell Distribution Width 13.1, Platelet Count 210, Mean Platelet Volume 6.9, Neutrophils (%) (Auto) 59.8, Lymphocytes (%) (Auto) 24.8, Monocytes (%) (Auto) 12.6H, Eosinophils (%) (Auto) 1.9, Basophils (%) ( Auto) 1.0, Sodium Level 140, Potassium Level 4.0, Chloride Level 106, Carbon Dioxide Level 25, Anion Gap 9, Blood Urea Nitrogen 10, Creatinine 0.8, Estimat Glomerular Filtration Rate > 60, Glucose Level 94, Calcium Level 9.0, Total Bilirubin 3.6H, Direct Bilirubin 2.7H, Aspartate Amino Transf (AST/SGOT) 85H, Alanine Aminotransferase (ALT/SGPT) 490H, Alkaline Phosphatase 291H, Total Protein 7.2, Albumin 3.1L 08/29/18 05:50: White Blood Count 4.9, Red Blood Count 4.18L, Hemoglobin 12.6, Hematocrit 38.1, Mean Corpuscular Volume 91, Mean Corpuscular Hemoglobin 30.1, Mean Corpuscular Hemoglobin Concent 33.0, Red Cell Distribution Width 13.2, Platelet Count 201, Mean Platelet Volume 6.8, Neutrophils (%) (Auto) 66.1, Lymphocytes (%) (Auto) 23.0, Monocytes (%) (Auto) 8.2, Eosinophils (%) (Auto) 2.1, Basophils (%) (Auto ) 0.7, Sodium Level 141, Potassium Level 3.8, Chloride Level 106, Carbon Dioxide Level 26, Anion Gap 9, Blood Urea Nitrogen 7, Creatinine 0.7, Estimat Glomerular Filtration Rate > 60, Glucose Level 92, Calcium Level 9.2, Total Bilirubin 1.6H, Direct Bilirubin 0.8H, Aspartate Amino Transf (AST/SGOT) 53H, Alanine Aminotransferase (ALT/SGPT) 353H, Alkaline Phosphatase 263H, Total Protein 6.6, Albumin 2.8L, Prothrombin Time 10.1, Prothromb Time International Ratio 1.0, Activated Partial Thromboplast Time 29, Magnesium Level 1.8, Globulin 3.8, Albumin/Globulin Ratio 0.7L, Thyroid Stimulating Hormone (TSH) 1.580 Height (Feet): 5 Height (Inches): 10.00 Weight (Pounds): 170 General Appearance: no apparent distress, alert Neck: normal alignment, supple Cardiovascular: normal rate, regular rhythm Respiratory/Chest: lungs clear, normal breath sounds Abdomen: non tender, soft, no organomegaly Ankur Carrington MD August 29, 2018 10:39
--- NOTE | 2018-08-29 14:31 | Surgery Progress Note ---
Surgery Progress Note Subjective Symptoms: improved, tolerating diet, passing flatus Additional Comments s/p ERCP with stone extraction Objective Last 24 Hour Vital Signs Date Time Temp Pulse Resp B/P (MAP) Pulse Ox O2 Delivery O2 Flow Rate FiO2 08/29/18 12:00 98.2 61 18 101/58 (72) 94 08/29/18 09:25 97.2 53 16 111/60 95 Room Air 08/29/18 09:19 54 14 98 08/29/18 09:10 54 14 111/67 95 Room Air 08/29/18 09:05 54 15 112/55 96 Room Air 08/29/18 09:05 75 12 99 08/29/18 09:00 55 13 113/64 98 Room Air 08/29/18 08:56 97.4 58 14 108/59 98 Nasal Cannula 3 08/29/18 07:58 97.9 63 18 106/63 (77) 97 08/29/18 07:55 Room Air 08/29/18 04:00 98.1 65 17 108/60 (76) 96 08/29/18 00:00 98.7 67 18 116/61 (79) 97 08/28/18 21:00 Room Air 08/28/18 20:00 99.3 61 18 103/62 (76) 95 08/28/18 16:26 98.5 69 19 94/80 (85) 95 I&O Intake and Output 08/28/18 08/29/18 19:00 07:00 Intake Total 2550 ml Balance 2550 ml IV Total 1350 ml Other 1200 ml # Voids 5 Cardiovascular: RSR Respiratory: clear Abdomen: soft, flat, non-tender, present bowel sounds, non-distended Extremities: no tenderness, no cyanosis Laboratory Tests Test 08/29/18 05:50 White Blood Count 4.9 K/UL (4.8-10.8) Red Blood Count 4.18 M/UL (4.20-5.40) L Hemoglobin 12.6 G/DL (12.0-16.0) Hematocrit 38.1 % (37.0-47.0) Mean Corpuscular Volume 91 FL (80-99) Mean Corpuscular Hemoglobin 30.1 PG (27.0-31.0) Mean Corpuscular Hemoglobin Concent 33.0 G/DL (32.0-36.0) Red Cell Distribution Width 13.2 % (11.6-14.8) Platelet Count 201 K/UL (150-450) Mean Platelet Volume 6.8 FL (6.5-10.1) Neutrophils (%) (Auto) 66.1 % (45.0-75.0) Lymphocytes (%) (Auto) 23.0 % (20.0-45.0) Monocytes (%) (Auto) 8.2 % (1.0-10.0) Eosinophils (%) (Auto) 2.1 % (0.0-3.0) Basophils (%) (Auto) 0.7 % (0.0-2.0) Prothrombin Time 10.1 SEC (9.30-11.50) Prothromb Time International Ratio 1.0 (0.9-1.1) Activated Partial Thromboplast Time 29 SEC (23-33) Sodium Level 141 MMOL/L (136-145) Potassium Level 3.8 MMOL/L (3.5-5.1) Chloride Level 106 MMOL/L (98-107) Carbon Dioxide Level 26 MMOL/L (21-32) Anion Gap 9 mmol/L (5-15) Blood Urea Nitrogen 7 mg/dL (7-18) Creatinine 0.7 MG/DL (0.55-1.30) Estimat Glomerular Filtration Rate > 60 mL/min (>60) Glucose Level 92 MG/DL (74-106) Calcium Level 9.2 MG/DL (8.5-10.1) Magnesium Level 1.8 MG/DL (1.8-2.4) Total Bilirubin 1.6 MG/DL (0.2-1.0) H Direct Bilirubin 0.8 MG/DL (0.0-0.3) H Aspartate Amino Transf (AST/SGOT) 53 U/L (15-37) H Alanine Aminotransferase (ALT/SGPT) 353 U/L (12-78) H Alkaline Phosphatase 263 U/L (46-116) H Total Protein 6.6 G/DL (6.4-8.2) Albumin 2.8 G/DL (3.4-5.0) L Globulin 3.8 g/dL Albumin/Globulin Ratio 0.7 (1.0-2.7) L Thyroid Stimulating Hormone (TSH) 1.580 uiU/mL (0.358-3.740) Plan Problems: (1) Abdominal pain (2) Cholecystitis with cholelithiasis Assessment & Plan: This is a 58-year-old female with cholecystitis and choledocholithiasis. Afebrile hemodynamically stable labs noted. CT scan with dilated common bile duct. MRCP with dilated common bile duct with a stones within the duct. N.p.o. IV fluids IV antibiotics Trend labs s/p ERCP We will plan for cholecystectomy tomorrow Case discussed with patient and respect and alternatives of all interventions discussed at which pain patient states that she will not be comfortable leaving the hospital without definitive treatment. States that she is been dealing this for a fair amount of time and needs to move on with her life. (3) Choledocholithiasis Jose Francisco Sharma August 29, 2018 14:31
--- NOTE | 2018-08-29 14:32 | Pre-Procedure Note/Attestation ---
Pre-Procedure Note/Attestation Complete Prior to Procedure Planned Procedure: not applicable Procedure Narrative: laparoscopic cholecystectomy possible open Indications for Procedure Pre-Operative Diagnosis: cholecystitis with choledocholithiasis Attestation I attest that I discussed the nature of the procedure; its benefits; risks and complications; and alternatives (and the risks and benefits of such alternatives ), prior to the procedure, with the patient (or the patient's legal district representative). I attest that, if there was a reasonable possibility of needing a blood transfusion, the patient (or the patient's legal district representative) was given the [facility] standardized written summary, pursuant to the Gene Aleksandra Blood Safety Act ([place] Health and Safety Code # 1645, as amended). I attest that I re-evaluated the patient just prior to the surgery and that there has been no change in the patient's H&P, except as documented below: Jose Francisco Sharma August 29, 2018 14:32
--- NOTE | 2018-08-29 15:46 | Anethesia Preoperative Eval ---
Anesthesia Pre-op PMH/ROS General Date of Evaluation: August 29, 2018 Time of Evaluation: 15:42 Anesthesiologist: Rodolfo ASA Score: ASA 2 Mallampati Score Class I : Soft palate, uvula, fauces, pillars visible Class II: Soft palate, uvula, fauces visible Class III: Soft palate, base of uvula visible Class IV: Only hard plate visible Mallampati Classification: Class II Surgeon: Prasanna Diagnosis: Symptomatic cholelithiasis Surgical Procedure: Lap cholecystectomy Anesthesia History: none Social History: drug use - remote H/o Family History: no anesthesia problems Allergies: Coded Allergies: MEPERIDINE (Verified Allergy, Mild, Rash, 01/06/17) itching skin severe Medications: see eMAR Patient NPO?: Yes NPO Date: August 29, 2018 NPO Time: 00:01 Past Medical History Cardiovascular: Denies: HTN, CAD, [place], valve dz, arrhythmia, other Pulmonary: Denies: asthma, COPD, HYUN, other Gastrointestinal/Genitourinary: Reports: GERD, other - recurrent abdominal pain ; Denies: CRI, ESRD Neurologic/Psychiatric: Reports: depression/anxiety; Denies: dementia, CVA, TIA, other Endocrine: Reports: hypothyroidism; Denies: DM, steroids, other HEENT: Denies: cataract (L), cataract (R), glaucoma, KASAAN (L), KASAAN (R), other Hematology/Immune: Reports: anemia - mild; Denies: DVT, bleeding disorder, other Musculoskeletal/Integumentary: Denies: OA, RA, DJD, DDD, edema, other PMH Narrative: as above PSxH Narrative: see H&P Anesthesia Pre-op Phys. Exam Physician Exam Last Vital Signs Date Time Temp Pulse Resp B/P (MAP) Pulse Ox O2 Delivery O2 Flow Rate FiO2 08/29/18 12:00 98.2 61 18 101/58 (72) 94 08/29/18 09:25 Room Air 08/29/18 08:56 3 Constitutional: NAD Neurologic: CN 2-12 intact Cardiovascular: RRR, no M/R/G Respiratory: CTA Gastrointestinal: other - some tenderness on palpation Airway Exam Mallampati Score: Class II MO: full Neck: flexible ROM: full Teeth: missing Dentures: no upper, no lower Anesthesia Pre-op A/P Labs Hematology Test 08/29/18 05:50 White Blood Count 4.9 K/UL (4.8-10.8) Red Blood Count 4.18 M/UL (4.20-5.40) L Hemoglobin 12.6 G/DL (12.0-16.0) Hematocrit 38.1 % (37.0-47.0) Mean Corpuscular Volume 91 FL (80-99) Mean Corpuscular Hemoglobin 30.1 PG (27.0-31.0) Mean Corpuscular Hemoglobin Concent 33.0 G/DL (32.0-36.0) Red Cell Distribution Width 13.2 % (11.6-14.8) Platelet Count 201 K/UL (150-450) Mean Platelet Volume 6.8 FL (6.5-10.1) Neutrophils (%) (Auto) 66.1 % (45.0-75.0) Lymphocytes (%) (Auto) 23.0 % (20.0-45.0) Monocytes (%) (Auto) 8.2 % (1.0-10.0) Eosinophils (%) (Auto) 2.1 % (0.0-3.0) Basophils (%) (Auto) 0.7 % (0.0-2.0) Coagulation Test 08/29/18 05:50 Prothrombin Time 10.1 SEC (9.30-11.50) Prothromb Time International Ratio 1.0 (0.9-1.1) Activated Partial Thromboplast Time 29 SEC (23-33) Chemistry Test 08/29/18 05:50 Sodium Level 141 MMOL/L (136-145) Potassium Level 3.8 MMOL/L (3.5-5.1) Chloride Level 106 MMOL/L (98-107) Carbon Dioxide Level 26 MMOL/L (21-32) Anion Gap 9 mmol/L (5-15) Blood Urea Nitrogen 7 mg/dL (7-18) Creatinine 0.7 MG/DL (0.55-1.30) Estimat Glomerular Filtration Rate > 60 mL/min (>60) Glucose Level 92 MG/DL (74-106) Calcium Level 9.2 MG/DL (8.5-10.1) Magnesium Level 1.8 MG/DL (1.8-2.4) Total Bilirubin 1.6 MG/DL (0.2-1.0) H Direct Bilirubin 0.8 MG/DL (0.0-0.3) H Aspartate Amino Transf (AST/SGOT) 53 U/L (15-37) H Alanine Aminotransferase (ALT/SGPT) 353 U/L (12-78) H Alkaline Phosphatase 263 U/L (46-116) H Total Protein 6.6 G/DL (6.4-8.2) Albumin 2.8 G/DL (3.4-5.0) L Globulin 3.8 g/dL Albumin/Globulin Ratio 0.7 (1.0-2.7) L Thyroid Stimulating Hormone (TSH) 1.580 uiU/mL (0.358-3.740) Risk Assessment & Plan Assessment: ASA 2 Plan: Ga with ETT Pre-Antibiotics Drug: as scheduled Tariq Reynolds MD August 29, 2018 15:46
[2018-08-29] MEDS: Morphine Sulfate 4mg/ml Inj (IV USE ONLY) IVP PRN ×2 (18:54→23:19)
--- NOTE | 2018-08-29 19:50 | NUR ---
NURSE NOTES: Received report from MALIKA Pedro and rounds made. Received pt laying in bed, AOX4, c/o nausea no vomit and pt states "the pain medication is not working". Will administer nausea medication and notify MD for pain. IV L FA patent and intact. IV fluid infusing as ordered. Bed in lowest position and locked, side rails up x 2, call light within reach. Will continue to monitor.
--- NOTE | 2018-08-29 20:00 | NUR ---
NURSE NOTES: Called and spoke with Dr. Sharma. Informed MD pt states "the pain medication is not working". MD ordered Morphine 2mg IVP x 1. Will administer once pharmacy verify medication.
[2018-08-29] MEDS ORDERED: Morphine Sulfate 2mg/ml Inj(IV/IM USE ONLY) IVP SCH (20:15)
--- NOTE | 2018-08-29 20:23 | NUR ---
NURSE NOTES: Morphine 2mg IVP x 1 given per MD order. No distress noted. Will continue to monitor.
[2018-08-30] VITALS (14 sets, daily range): BP systolic 87–149; BP diastolic 51–75
--- NOTE | 2018-08-30 02:55 | NUR ---
NURSE NOTES: Pt turns off IV fluid when ever she feel like it. When pt was questioned why IV fluid is off, Pt state "because it's beeping". Instructed pt to push call light when IV is beeping. Pt verbalized understanding. Will continue to monitor. +
[2018-08-30] MEDS: Morphine Sulfate 4mg/ml Inj (IV USE ONLY) IVP PRN ×2 (03:21→07:37)
--- NOTE | 2018-08-30 04:20 | NUR ---
NURSE NOTES: Pt came to the nurse's station c/o severe abdominal pain. Pt states the morphine 4mg IVP last given at 0319 in not helping. Pt is requesting additional pain medication. Paged Dr. Hunter, awaiting for call back.
--- NOTE | 2018-08-30 06:14 | NUR ---
NURSE NOTES: Paged Dr. Ocasio awaiting for call back.
--- NOTE | 2018-08-30 07:27 | NUR ---
HAND-OFF: Report given to MALIKA Johnson. Pt in stable condition.
--- NOTE | 2018-08-30 07:28 | NUR ---
NURSE NOTES: Patient is in bed awake and able to verbalize needs. Patient is stable. Complains of severe pain, will administer pain medication as ordered. Breathing is even and unlabored. Patient encouraged to use call light for assistance, verbalized understanding. Patient is in bed in locked and low position with call light within reach. Will continue to monitor.
[2018-08-30 08:05] LABS: BASOPHILS % (AUTO) 0.7 % (0.0-2.0); EOSINOPHILS % (AUTO) 3.5 % (0.0-3.0); HEMOGLOBIN 13.2 G/DL (12.0-16.0); MEAN CORPUSCULAR VOLUME 90 FL (80-99); NEUTROPHILS % (AUTO) 47.8 % (45.0-75.0); PLATELET COUNT 226 K/UL (150-450); RED BLOOD COUNT 4.44 M/UL (4.20-5.40); RED CELL DISTRIBUTION WIDTH 12.7 % (11.6-14.8); WHITE BLOOD COUNT 3.8 K/UL (4.8-10.8)
--- NOTE | 2018-08-30 08:09 | NUR ---
NURSE NOTES: Patient requested different pain medication. Paged oncology rn doctor. Awaiting response.
[2018-08-30] MEDS ORDERED: HYDROmorphone 1mg/ml Carpuject IVP SCH (08:15)
--- NOTE | 2018-08-30 08:15 | NUR ---
NURSE NOTES: Received new orders for dilaudid. Orders read back and carried out. Will administer pain medication as ordered.
[2018-08-30] MEDS ORDERED: Iothalamate Meglumine 60% 30ML INJ ONE ×2 (08:20→08:21)
[2018-08-30 08:41] LABS: ALANINE AMINOTRANSFERASE 281 U/L (12-78); ALBUMIN/GLOBULIN RATIO 0.8 (1.0-2.7); ALKALINE PHOSPHATASE 262 U/L (46-116); ANION GAP 7 mmol/L (5-15); ASPARTATE AMINO TRANSFERASE 38 U/L (15-37); BILIRUBIN,TOTAL 1.2 MG/DL (0.2-1.0); BLOOD UREA NITROGEN 5 mg/dL (7-18); CALCIUM 9.2 MG/DL (8.5-10.1); CARBON DIOXIDE 30 MMOL/L (21-32); CHLORIDE 107 MMOL/L (98-107); CREATININE 0.8 MG/DL (0.55-1.30); POTASSIUM 3.9 MMOL/L (3.5-5.1); SODIUM 144 MMOL/L (136-145)
--- NOTE | 2018-08-30 09:00 | NUR ---
NURSE NOTES: Patient taken downstairs for procedure via hospital bed.
[2018-08-30 09:15] LABS: BILIRUBIN,DIRECT 0.6 MG/DL (0.0-0.3)
--- NOTE | 2018-08-30 09:45 | GI Progress Note ---
Assessment/Plan Problems: (1) Abdominal pain ICD Codes: R10.9 - Unspecified abdominal pain SNOMED: 00505172 (2) Cholecystitis with cholelithiasis ICD Codes: K80.10 - Calculus of gallbladder with chronic cholecystitis without obstruction SNOMED: 40455088, 056042821 (3) Choledocholithiasis ICD Codes: K80.50 - Calculus of bile duct without cholangitis or cholecystitis without obstruction SNOMED: 928152693 Status: unchanged Status Narrative Discussed with Dr. Contreras Assessment/Plan SUMMARY OF FINDINGS: Status post ERCP, sphincterotomy, multiple stones removal , severe dilated common bile duct, and finally stent placement. RECOMMENDATIONS: Patient scheduled for laparoscopic cholecystectomy today Follow-up surgical recommendations Advance diet per surgery Pain management Monitor for postoperative nausea and vomiting, Zofran as needed PPI Patient needs repeat ERCP in approximately 6 to 8 weeks for stent removal as an outpatient The patient was seen and examined at bedside and all new and available data was reviewed in the patients chart. I agree with the above findings, impression and plan. (Patient seen earlier today. Signature stamp does not reflect patient encounter time.). - Osman Contreras MD Subjective Gastrointestinal/Abdominal: Reports: abdominal pain Objective Last 24 Hour Vital Signs Date Time Temp Pulse Resp B/P (MAP) Pulse Ox O2 Delivery O2 Flow Rate FiO2 08/30/18 04:00 98.5 64 18 90/63 (72) 100 08/30/18 00:00 98.8 65 20 109/56 (73) 97 08/29/18 21:00 Room Air 08/29/18 20:00 99.2 62 20 105/61 (76) 97 08/29/18 15:50 99.0 56 18 110/59 (76) 98 08/29/18 12:00 98.2 61 18 101/58 (72) 94 Intake and Output 08/29/18 08/30/18 19:00 07:00 Intake Total 975 ml 300 ml Output Total 0 ml Balance 975 ml 300 ml Intake Oral 600 ml IV Total 375 ml 300 ml Output Estimated Blood Loss 0 ml # Voids 3 3 Laboratory Tests Test 08/30/18 07:30 White Blood Count 3.8 K/UL (4.8-10.8) L Red Blood Count 4.44 M/UL (4.20-5.40) Hemoglobin 13.2 G/DL (12.0-16.0) Hematocrit 40.0 % (37.0-47.0) Mean Corpuscular Volume 90 FL (80-99) Mean Corpuscular Hemoglobin 29.8 PG (27.0-31.0) Mean Corpuscular Hemoglobin Concent 33.1 G/DL (32.0-36.0) Red Cell Distribution Width 12.7 % (11.6-14.8) Platelet Count 226 K/UL (150-450) Mean Platelet Volume 6.8 FL (6.5-10.1) Neutrophils (%) (Auto) 47.8 % (45.0-75.0) Lymphocytes (%) (Auto) 39.0 % (20.0-45.0) Monocytes (%) (Auto) 9.0 % (1.0-10.0) Eosinophils (%) (Auto) 3.5 % (0.0-3.0) H Basophils (%) (Auto) 0.7 % (0.0-2.0) Sodium Level 144 MMOL/L (136-145) Potassium Level 3.9 MMOL/L (3.5-5.1) Chloride Level 107 MMOL/L (98-107) Carbon Dioxide Level 30 MMOL/L (21-32) Anion Gap 7 mmol/L (5-15) Blood Urea Nitrogen 5 mg/dL (7-18) L Creatinine 0.8 MG/DL (0.55-1.30) Estimat Glomerular Filtration Rate > 60 mL/min (>60) Glucose Level 106 MG/DL (74-106) Calcium Level 9.2 MG/DL (8.5-10.1) Total Bilirubin 1.2 MG/DL (0.2-1.0) H Direct Bilirubin 0.6 MG/DL (0.0-0.3) H Aspartate Amino Transf (AST/SGOT) 38 U/L (15-37) H Alanine Aminotransferase (ALT/SGPT) 281 U/L (12-78) H Alkaline Phosphatase 262 U/L (46-116) H Total Protein 6.6 G/DL (6.4-8.2) Albumin 3.0 G/DL (3.4-5.0) L Globulin 3.6 g/dL Albumin/Globulin Ratio 0.8 (1.0-2.7) L Lipase 205 U/L (73-393) Height (Feet): 6 Height (Inches): 0.00 Weight (Pounds): 170 General Appearance: WD/WN, no apparent distress, alert Cardiovascular: normal rate Respiratory/Chest: normal breath sounds, no respiratory distress Abdominal Exam: normal bowel sounds, non tender, soft Extremities: normal range of motion, non-tender Ni Greene NP August 30, 2018 09:44
[2018-08-30] MEDS ORDERED: LR 1000ml ONE (10:00)
[2018-08-30] MEDS ORDERED: Sterile Water Irrig 1000ml IRRIG ONE (10:00)
[2018-08-30] MEDS ORDERED: Propofol 200mg/20ml IV ONE (10:03)
[2018-08-30] MEDS ORDERED: Lidocaine 1% MPF 10mg/ml 5ml ONE (10:03)
[2018-08-30] MEDS ORDERED: fentaNYL 100 mcg/2 mL IV ONE (10:03)
[2018-08-30] MEDS ORDERED: Midazolam 2mg/2ml Inj ONE ×2 (10:03→11:47)
[2018-08-30] MEDS ORDERED: LR 1000ml 1,000 ML IVLG SCH (10:40)
--- NOTE | 2018-08-30 10:42 | Immediate Post-Op Evaluation ---
Immediate Post-Op Evalulation Immediate Post-Op Evalulation Procedure: lap siddhartha Date of Evaluation: August 30, 2018 Time of Evaluation: 11:27 IV Fluids: 600 Blood Products: 0 Estimated Blood Loss: 5 Urinary Output: 0 Blood Pressure Systolic: 149 Blood Pressure Diastolic: 75 Pulse Rate: 64 Respiratory Rate: 17 O2 Sat by Pulse Oximetry: 96 Temperature (Fahrenheit): 97 Pain Score (1-10): 0 Nausea: No Vomiting: No Complications 0 Patient Status: awake, reacts, patent, none Hydration Status: adequate Drug: Ancef 1g Given Within 1 Hr of Incision: Yes Varsha Rob MD August 30, 2018 10:42
[2018-08-30] MEDS ORDERED: Dexamethasone 4mg/ml vial ONE (10:44)
[2018-08-30] MEDS ORDERED: Ketorolac 30mg Inj ONE (10:44)
[2018-08-30] MEDS ORDERED: Hydromorphone 0.5mg/0.5ml inj IVP PRN (10:45)
[2018-08-30] MEDS ORDERED: LORazepam Inj 2mg/ml 1ml IV PRN (10:45)
[2018-08-30] MEDS ORDERED: Midazolam 2mg/2ml Inj IVP PRN (10:45)
[2018-08-30] MEDS ORDERED: Ketorolac 30mg Inj IV PRN ×2 (10:45→11:45)
[2018-08-30] MEDS ORDERED: Metoclopramide 10mg/2ml Inj IVP PRN (10:45)
[2018-08-30] MEDS ORDERED: DiphenhydrAMINE 50mg/ml Inj IVP PRN (10:45)
[2018-08-30] MEDS ORDERED: NS Irrig 1000ml IRRIG ONE ×2 (10:49)
[2018-08-30] MEDS ORDERED: DiphenhydrAMINE 50mg/ml Inj ONE (11:16)
[2018-08-30] MEDS ORDERED: Glycopyrrolate 0.2mg/ml 1ml Vial ONE ×2 (11:39→12:26)
--- NOTE | 2018-08-30 11:39 | Brief Operative Note ---
Immediate Post Operative Note Operative Note Pre-op Diagnosis: cholecystitis with choledocholithiasis Procedure: lap siddhartha Post-op Diagnosis: same as pre-op Surgeon: german Anesthesiologist: kathie de leon Anesthesia: local Specimen: yes Complications: none Condition: stable Fluids: see records Estimated Blood Loss: minimal Drains: none Implant(s) used?: No Jose Francisco Sharma August 30, 2018 11:39
--- NOTE | 2018-08-30 11:39 | NUR ---
1200: late entry DR. GAMEZ AT BEDSIDE ORDERED STAT VERSED 2MG. PATIENT STARTED HAVING " PANIC ATTACK ". DR. GAMEZ GAVE THE VERSED TO THE PATIENT AND UNABLE TO SCAN THE MEDICINE. Addendum: 08/31/18 at 0855 by KODY DIANA RN 1200 DR. GAMEZ ALSO WANTS 3 VIALS OF GLYCOPYROLATE (0.2MG/PER VIAL) WAS TAKEN TO [facility] AND GAVE TO HER. STAY WITH THE PATIENT UNTIL SHE CALM DOWN AND BECOME STABLE.
[2018-08-30] MEDS ORDERED: Morphine Sulfate 2mg/ml Inj(IV/IM USE ONLY) IVP PRN ×2 (11:45)
[2018-08-30] MEDS ORDERED: HYDROcodone/Acetamin 10/325 tab ORAL PRN (11:45)
[2018-08-30] MEDS ORDERED: Morphine Sulfate 4mg/ml Inj (IV USE ONLY) IVP PRN (11:45)
[2018-08-30] MEDS ORDERED: HYDROcodone/Acetamin 5/325 tab ORAL PRN (11:45)
--- NOTE | 2018-08-30 12:55 | NUR ---
NURSE NOTES: Patient arrived on unit via hospital bed without incident. Patient is stable. Complains of severe pain, will administer medication as ordered. Patient is on 2L oxygen via NC, tolerated well. Oxygen saturation is 97%. Patient encouraged to use call light for assistance, verbalized understanding. Will D/C IV fluids as ordered. Surgical dressings clean, dry, and intact. All belongings accounted for. Patient is in good spirits in bed in locked and lowest position with call light within reach. Will continue to monitor.
[2018-08-30] MEDS ORDERED: HYDROmorphone 1mg/ml Carpuject IVP PRN (13:15)
--- NOTE | 2018-08-30 13:34 | General Progress Note ---
Assessment/Plan Status: unchanged Assessment/Plan: #Choledocholithiasis s/p ERCP and lap siddhartha -continue supportive care -Pain meds -IS -ADAT -Anticipate discharge home tomorrow #Hypothyroidism -cont thyroid armour Subjective Date patient seen: August 30, 2018 Time patient seen: 13:00 ROS Limited/Unobtainable: No Constitutional: Denies: chills Cardiovascular: Denies: chest pain Gastrointestinal/Abdominal: Denies: abdomen distended, abdominal pain Allergies: Coded Allergies: MEPERIDINE (Verified Allergy, Mild, Rash, 01/06/17) itching skin severe Subjective Medicine follow up for choledocholithiasis, underwent ERCP yesterday with stone removal. S/p lap cholecystectomy today. No new complaints. Objective Last 24 Hour Vital Signs Date Time Temp Pulse Resp B/P (MAP) Pulse Ox O2 Delivery O2 Flow Rate FiO2 08/30/18 12:15 70 17 97/52 97 Nasal Cannula 3 08/30/18 12:00 63 16 99/56 98 Nasal Cannula 3 08/30/18 11:50 65 17 111/52 99 Simple Mask 6 08/30/18 11:40 59 15 119/60 100 Simple Mask 6 08/30/18 11:30 60 18 130/68 98 Simple Mask 6 08/30/18 11:27 64 17 96 08/30/18 11:22 97.0 64 17 149/75 96 Simple Mask 6 08/30/18 09:00 Room Air 08/30/18 08:00 97.9 66 21 87/69 (75) 97 08/30/18 04:00 98.5 64 18 90/63 (72) 100 08/30/18 00:00 98.8 65 20 109/56 (73) 97 08/29/18 21:00 Room Air 08/29/18 20:00 99.2 62 20 105/61 (76) 97 08/29/18 15:50 99.0 56 18 110/59 (76) 98 Intake and Output 08/29/18 08/30/18 19:00 07:00 Intake Total 975 ml 300 ml Output Total 0 ml Balance 975 ml 300 ml Intake Oral 600 ml IV Total 375 ml 300 ml Output Estimated Blood Loss 0 ml # Voids 3 3 Laboratory Tests 08/30/18 07:30: White Blood Count 3.8L, Red Blood Count 4.44, Hemoglobin 13.2, Hematocrit 40.0, Mean Corpuscular Volume 90, Mean Corpuscular Hemoglobin 29.8, Mean Corpuscular Hemoglobin Concent 33.1, Red Cell Distribution Width 12.7, Platelet Count 226, Mean Platelet Volume 6.8, Neutrophils (%) (Auto) 47.8, Lymphocytes (%) (Auto) 39.0, Monocytes (%) (Auto) 9.0, Eosinophils (%) (Auto) 3.5H, Basophils (%) (Auto ) 0.7, Sodium Level 144, Potassium Level 3.9, Chloride Level 107, Carbon Dioxide Level 30, Anion Gap 7, Blood Urea Nitrogen 5L, Creatinine 0.8, Estimat Glomerular Filtration Rate > 60, Glucose Level 106, Calcium Level 9.2, Total Bilirubin 1.2H, Direct Bilirubin 0.6H, Aspartate Amino Transf (AST/SGOT) 38H, Alanine Aminotransferase (ALT/SGPT) 281H, Alkaline Phosphatase 262H, Total Protein 6.6, Albumin 3.0L, Globulin 3.6, Albumin/Globulin Ratio 0.8L, Lipase 205 Height (Feet): 6 Height (Inches): 0.00 Weight (Pounds): 170 General Appearance: no apparent distress, alert Cardiovascular: normal rate, regular rhythm Respiratory/Chest: lungs clear, normal breath sounds, no respiratory distress Abdomen: non tender Ankur Carrington MD August 30, 2018 13:33
--- NOTE | 2018-08-30 16:30 | Operative Note - Dictated ---
DATE OF OPERATION: 08/30/2018 PREOPERATIVE DIAGNOSIS: Acute cholecystitis with choledocholithiasis. POSTOPERATIVE DIAGNOSIS: Acute cholecystitis with choledocholithiasis. OPERATION PERFORMED: Laparoscopic cholecystectomy. ATTENDING SURGEON: Jose Francisco Sharma M.D. [employer] SUPERVISOR: None. ANESTHESIA: General INORGANIC CHEMIST. ANESTHESIOLOGIST: Dr. Zachary Jin. COMPLICATIONS: None. ESTIMATED BLOOD LOSS: Minimal. IV FLUIDS: Please see anesthesia records. DRAINS: None. SPECIMEN: Gallbladder and stones sent to pathology for review. WOUND CLASSIFICATION: Class 3. IMPLANTS: None. COUNTS: Sponge and needle count correct x2. ANTIBIOTICS: The patient given 2 g Ancef IV one hour prior to cut time. INDICATIONS FOR PROCEDURE: This is a 58-year-old female who presented to the emergency room at [facility] complaining of acutely worsening abdominal pain with associated nausea, vomiting, and was identified to have elevated LFTs and total bilirubin. CT abdomen and pelvis demonstrated cholelithiasis with dilated common bile duct. MRCP performed and identified numerous stones and a dilated 2.2 cm common bile duct with intrahepatic biliary dilatation as well. ERCP was performed and multiple stones were evacuated from the common bile duct and stent was placed. I discussed with the patient given these findings and her care plan, the patient was very clear that she wanted definitive treatment and was not comfortable going home prior to so, and desired cholecystectomy, which was indicated and recommended. Risks, benefits, and alternatives were discussed with the patient in detail, who expressed understanding and consented to surgery. OPERATIVE NOTE: The patient was taken to the operating room and placed on the operating table in supine position with bilateral arms out. All bony prominences well padded. SCDs were placed. Preoperative time-out taken identifying the patient, procedure, operative staff, and surgical staff. General anesthesia was induced and the patient was intubated. The abdomen was clipped, prepped, and draped in standard surgical fashion. A 2 g Ancef IV were given one hour prior to cut time. An infraumbilical incision was made and carried down to the fascia, which was elevated and incised. Entry into the abdomen was obtained using the open Ladonna technique without complication. The 12 mm Ladonna trocar was inserted and the abdomen was insufflated. The patient tolerated the insufflation well. Laparoscope was inserted and the abdomen was inspected. No acute injury from initial trocar placement identified. Abdomen was otherwise without adhesions and fairly benign. In the right upper quadrant, gallbladder was identified to be mildly distended and thickened with thickened wall. Secondary trocars were placed under direct visualization beginning with a 12 mm in the right subxiphoid followed by two 5 mm right subcostal ports. Using the most lateral port, a grasper was placed and the dome of the gallbladder was grasped and retracted over the liver. Using the midclavicular port, the infundibulum and gallbladder was grasped and peritoneal lining of the gallbladder was gently dissected out as the infundibulum was retracted towards the right lower quadrant. After gentle dissection, the cystic duct and artery were circumferentially dissected out. The cystic artery was doubly clipped and divided. The only remaining structure entering within the gallbladder and the infundibulum was the cystic duct. At this time, the cystic duct was doubly clipped and divided. The gallbladder was then removed from the liver bed using electrocautery. Gallbladder was placed in endoscopic retrieval bag and removed from the subxiphoid port without complication. The abdomen was inspected and good hemostasis was noted from the liver bed with electrocautery. The cystic duct and artery stumps were identified with good clip placement. No leakage of bile or bleeding. At this time, we began the conclusion of our procedure. Secondary trocars removed under direct visualization. The umbilical trocar site was removed and the abdomen was desufflated. The umbilical trocar site fascia and the subxiphoid trocar site fascia were reapproximated using 0 Vicryl [id number] sutures. The remaining skin incisions were cleansed and reapproximated using 4-0 Monocryl subcuticular interrupted sutures. Local anesthetic was infiltrated throughout the procedure for the patient's comfort. Skin glue and Steri-Strips were applied. The patient tolerated the procedure well, was extubated and taken to postanesthetic care unit in stable condition. Jose Francisco Sharma M.D. DR: SHANNAN JOB#: [id number] CC:
[2018-08-30] MEDS ORDERED: cefTRIAXone 1 GM in D5W 55 ML IVPB SCH (18:00)
--- NOTE | 2018-08-30 19:18 | NUR ---
HAND-OFF: Report given to Bulmaro DALY. patient is stable.
--- NOTE | 2018-08-30 19:30 | NUR ---
NURSE NOTES: Received report from MALIKA Johnson. Received pt at the nurse's station wanted to know if she needs to keep SCD on. Explained to pt the need for the SCD to prevent blood clot. Pt verbalized understanding C/o pain informed pt pain medication not yet due. IV L FA patent and intact. Gait steady, no distress noted. Will continue to monitor.
[2018-08-31] VITALS: BP 113/63
[2018-08-31 04:00] VITALS: BP 109/61
[2018-08-31 07:14] LABS: BASOPHILS % (AUTO) 0.5 % (0.0-2.0); EOSINOPHILS % (AUTO) 0.3 % (0.0-3.0); HEMATOCRIT 39.2 % (37.0-47.0); LYMPHOCYTES % (AUTO) 19.5 % (20.0-45.0); MEAN CORPUSCULAR VOLUME 90 FL (80-99); MONOCYTES % (AUTO) 7.5 % (1.0-10.0); NEUTROPHILS % (AUTO) 72.2 % (45.0-75.0); PLATELET COUNT 237 K/UL (150-450); RED BLOOD COUNT 4.34 M/UL (4.20-5.40); RED CELL DISTRIBUTION WIDTH 12.6 % (11.6-14.8); WHITE BLOOD COUNT 7.6 K/UL (4.8-10.8)
[2018-08-31 07:33] LABS: ALANINE AMINOTRANSFERASE 237 U/L (12-78); ALBUMIN 2.9 G/DL (3.4-5.0); ALBUMIN/GLOBULIN RATIO 0.6 (1.0-2.7); ALKALINE PHOSPHATASE 243 U/L (46-116); ANION GAP 10 mmol/L (5-15); ASPARTATE AMINO TRANSFERASE 67 U/L (15-37); BILIRUBIN,TOTAL 0.8 MG/DL (0.2-1.0); BLOOD UREA NITROGEN 10 mg/dL (7-18); CALCIUM 9.3 MG/DL (8.5-10.1); CARBON DIOXIDE 27 MMOL/L (21-32); CHLORIDE 103 MMOL/L (98-107); POTASSIUM 3.8 MMOL/L (3.5-5.1); SODIUM 139 MMOL/L (136-145)
--- NOTE | 2018-08-31 07:33 | NUR ---
NURSE NOTES: WALKING ROUNDS DONE WITH OUTGOING RN. PATIENT AOX4. UP AMBULATING INDEPENDENTLY. GAIT STEADY. QUESTIONS ANSWERED, NEEDS MET. DISCUSSED PLAN OF CARE FOR THE DAY.ACKNOWLEDGED UNDERSTANDING. WILL CONTINUE TO MONITOR.
--- NOTE | 2018-08-31 07:35 | NUR ---
HAND-OFF: Report given to MALIKA Phelps. Pt in stable condition.
--- NOTE | 2018-08-31 07:46 | Discharge Summary ---
Discharge Summary Hospital Course Date of Admission August 27, 2018 at 22:48 Date of Discharge Admitting Diagnosis Choledocholithiasis LUKASZ Whittaker is a 58 year old female who was admitted on August 27, 2018 at 22: 48 for Choledocholithiasis Hospital Course #Choledocholithiasis s/p ERCP and lap siddhartha -Tolerating regular diet -Clear for discharge by Surgery -will be on short course of oral Dilaudid and Augmentin as outpatient -Follow up with Dr. Sharma and pain management as outpatient #Hypothyroidism -cont thyroid armour Discharge Discharge Disposition Patient was discharged to Home Discharge Diagnoses: (1) Cholecystitis with cholelithiasis (2) Choledocholithiasis Ankur Carrington MD August 31, 2018 07:46
[2018-08-31 08:34] VITALS: BP 93/50
--- NOTE | 2018-08-31 09:31 | NUR ---
P.T Note: P.T evaluation completed. Pt is currently functioning at baseline. NO further skilled P.T follow up needed at this time.
--- NOTE | 2018-08-31 10:24 | GI Progress Note ---
Assessment/Plan Problems: (1) Abdominal pain ICD Codes: R10.9 - Unspecified abdominal pain SNOMED: [id number] (2) Cholecystitis with cholelithiasis ICD Codes: K80.10 - Calculus of gallbladder with chronic cholecystitis without obstruction SNOMED: 00428456, 378156016 (3) Choledocholithiasis ICD Codes: K80.50 - Calculus of bile duct without cholangitis or cholecystitis without obstruction SNOMED: 291936724 Status: doing well, stable Status Narrative Discussed with Dr. Contreras Assessment/Plan SUMMARY OF FINDINGS: Status post ERCP, sphincterotomy, multiple stones removal , severe dilated common bile duct, and finally stent placement. Status post cholecystectomy RECOMMENDATIONS: Follow-up surgical recommendations Advance diet per surgery Pain management Monitor for postoperative nausea and vomiting, Zofran as needed PPI Patient needs repeat ERCP in approximately 6 to 8 weeks for stent removal as an outpatient The patient was seen and examined at bedside and all new and available data was reviewed in the patients chart. I agree with the above findings, impression and plan. (Patient seen earlier today. Signature stamp does not reflect patient encounter time.). - Osman Contreras MD Subjective Gastrointestinal/Abdominal: Reports: abdominal pain Subjective Surgical pain Objective Last 24 Hour Vital Signs Date Time Temp Pulse Resp B/P (MAP) Pulse Ox O2 Delivery O2 Flow Rate FiO2 08/31/18 09:00 Room Air 08/31/18 08:51 98.2 08/31/18 08:34 98.2 64 19 93/50 (64) 96 08/31/18 04:00 98.2 62 18 109/61 (77) 100 08/31/18 00:00 97.2 58 19 113/63 (80) 100 08/30/18 21:00 Room Air 08/30/18 20:00 98.5 62 18 103/58 (73) 98 08/30/18 16:00 98.0 19 98/56 (70) 97 08/30/18 13:55 97.6 64 18 93/52 (66) 99 08/30/18 12:55 97.9 60 19 94/51 (65) 97 08/30/18 12:30 97.6 62 18 99/51 98 Nasal Cannula 3 08/30/18 12:15 70 17 97/52 97 Nasal Cannula 3 08/30/18 12:00 63 16 99/56 98 Nasal Cannula 3 08/30/18 11:50 65 17 111/52 99 Simple Mask 6 08/30/18 11:40 59 15 119/60 100 Simple Mask 6 08/30/18 11:30 60 18 130/68 98 Simple Mask 6 08/30/18 11:27 64 17 96 08/30/18 11:22 97.0 64 17 149/75 96 Simple Mask 6 Intake and Output 08/30/18 08/31/18 19:00 07:00 Intake Total 355 ml 480 ml Balance 355 ml 480 ml Intake Oral 300 ml 480 ml IV Total 55 ml # Voids 2 3 Laboratory Tests Test 08/31/18 06:46 White Blood Count 7.6 K/UL (4.8-10.8) # Red Blood Count 4.34 M/UL (4.20-5.40) Hemoglobin 13.0 G/DL (12.0-16.0) Hematocrit 39.2 % (37.0-47.0) Mean Corpuscular Volume 90 FL (80-99) Mean Corpuscular Hemoglobin 30.0 PG (27.0-31.0) Mean Corpuscular Hemoglobin Concent 33.3 G/DL (32.0-36.0) Red Cell Distribution Width 12.6 % (11.6-14.8) Platelet Count 237 K/UL (150-450) Mean Platelet Volume 6.7 FL (6.5-10.1) Neutrophils (%) (Auto) 72.2 % (45.0-75.0) Lymphocytes (%) (Auto) 19.5 % (20.0-45.0) L Monocytes (%) (Auto) 7.5 % (1.0-10.0) Eosinophils (%) (Auto) 0.3 % (0.0-3.0) Basophils (%) (Auto) 0.5 % (0.0-2.0) Sodium Level 139 MMOL/L (136-145) Potassium Level 3.8 MMOL/L (3.5-5.1) Chloride Level 103 MMOL/L (98-107) Carbon Dioxide Level 27 MMOL/L (21-32) Anion Gap 10 mmol/L (5-15) Blood Urea Nitrogen 10 mg/dL (7-18) Creatinine 1.0 MG/DL (0.55-1.30) Estimat Glomerular Filtration Rate 56.8 mL/min (>60) Glucose Level 134 MG/DL (74-106) H Calcium Level 9.3 MG/DL (8.5-10.1) Total Bilirubin 0.8 MG/DL (0.2-1.0) Aspartate Amino Transf (AST/SGOT) 67 U/L (15-37) H Alanine Aminotransferase (ALT/SGPT) 237 U/L (12-78) H Alkaline Phosphatase 243 U/L (46-116) H Total Protein 7.4 G/DL (6.4-8.2) Albumin 2.9 G/DL (3.4-5.0) L Globulin 4.5 g/dL Albumin/Globulin Ratio 0.6 (1.0-2.7) L Height (Feet): 6 Height (Inches): 0.00 Weight (Pounds): 170 General Appearance: WD/WN, no apparent distress, alert Cardiovascular: normal rate Respiratory/Chest: normal breath sounds, no respiratory distress Abdominal Exam: normal bowel sounds, non tender, soft Extremities: normal range of motion, non-tender Ni Greene NP August 31, 2018 10:24
--- NOTE | 2018-08-31 10:41 | 48 Hour Post Anesthesia Eval ---
Post Anesthesia Evaluation Procedure: lap siddhartha Date of Evaluation: August 31, 2018 Time of Evaluation: 10:40 Blood Pressure Systolic: 102 0: 56 Pulse Rate: 72 Respiratory Rate: 20 Temperature (Fahrenheit): 97.4 O2 Sat by Pulse Oximetry: 98 Airway: patent Nausea: No Vomiting: No Pain Intensity: 2 Hydration Status: adequate Cardiopulmonary Status: stable Mental Status/LOC: patient returned to baseline Follow-up Care/Observations: n/a Post-Anesthesia Complications: none Follow-up care needed: ready to discharge Tariq Reynolds MD August 31, 2018 10:41
--- NOTE | 2018-08-31 11:30 | NUR ---
NURSE NOTES: PATIENT BEEN DISCHARGED SINCE THIS A.M. PRESCRIPTION FILLED @ [facility], PAPER PRINTED. PATIENT SEEN BY PCP, GI. ALL DC QUESTIONS ANSWERED. STILL REQUESTING TO SEE SURGEON. DR. FOLEY CALLED. WILL BE AT HOSPITAL AROUND 1300 TODAY. BARBARA INFORMED. STATES HER FRIEND AGUILA TO COME SOON.
[2018-08-31 12:00] VITALS: BP 111/71
--- NOTE | 2018-08-31 14:00 | NUR ---
NURSE NOTES: PATIENT READY TO LEAVE. DISCHARGE INSTRUCTIONS REVIEWED WITH PATIENT AND PATIENT EDUCATION PROVIDED. VERBALIZED UNDERSTANDING. ALL BELONGINGS WITH PATIENT AND NEW MEDICATION GIVEN. PATIENT TO F/U WITH SURGEON DISCUSSED AND INDICATED ON DISCHARGE FORM. AMBULATORY. GAIT STEADY. ACCOMPANIED TO LOBBY BY STAFF.
[2018-08-31] MEDS ORDERED: NS 275ml ONE (14:09)
[2018-08-31] MEDS ORDERED: Tubing IV Secondary IV ONE (14:09)
== END 2018-08-31 14:10 | disposition home or self-care (01) | DRG 419 ==
LOC: EMR 21:25 → 3E 22:48 → EDBEDREQ 23:07
PROC: 0FC98ZZ Extirpation of Matter from Common Bile Duct, Via Natural or Artificial Opening Endoscopic (ICD-10-PCS; principal; 2018-08-29 08:13)
PROC: 0F798DZ Dilation of Common Bile Duct with Intraluminal Device, Via Natural or Artificial Opening Endoscopic (ICD-10-PCS; principal; 2018-08-29 08:13)
PROC: 0FT44ZZ Resection of Gallbladder, Percutaneous Endoscopic Approach (ICD-10-PCS; 2018-08-30)
DX: K80.60 Calculus of gallbladder and bile duct with cholecystitis, unspecified, without obstruction (principal); E03.9 Hypothyroidism, unspecified; Z88.8 Allergy status to other drugs, medicaments and biological substances; Z87.891 Personal history of nicotine dependence
CPT/HCPCS: 36415; 74176; 74181; 74328; 76000; 80048; 80053; 80076; 80307; 81003; 82248; 83690; 83735; 84443; 85025; 85610; 85730; 94003; 94150; 96361; 96374; 96375; 96376; 99285; J2250; J2405

== ENCOUNTER 2018-10-20 08:31 | Day surgery (SDC) | payer MEDICARE ==
[~2018-10-20] VITALS: Ht 177.8 cm; Wt 77.1 kg
[2018-10-20] VITALS (8 sets, daily range): BP systolic 87–119; BP diastolic 51–61
[2018-10-20] MEDS ORDERED: fentaNYL 100 mcg/2 mL IV ONE (08:32)
[2018-10-20] MEDS ORDERED: Midazolam 2mg/2ml Inj ONE (08:32)
[2018-10-20] MEDS ORDERED: XYOSTED50 MG/0.5 SQ (09:46)
[2018-10-20] MEDS ORDERED: LAMICTAL150 MG ORAL (09:46)
--- NOTE | 2018-10-20 09:58 | Anethesia Preoperative Eval ---
Anesthesia Pre-op PMH/ROS General Date of Evaluation: Oct 20, 2018 Time of Evaluation: 10:52 Anesthesiologist: Corazon Yung CRNA ASA Score: ASA 2 Mallampati Score Class I : Soft palate, uvula, fauces, pillars visible Class II: Soft palate, uvula, fauces visible Class III: Soft palate, base of uvula visible Class IV: Only hard plate visible Mallampati Classification: Class II Surgeon: Diane Diagnosis: cholelithiasis Surgical Procedure: ERCP with stent removal Anesthesia History: none Family History: no anesthesia problems Allergies: Coded Allergies: MEPERIDINE (Verified Allergy, Mild, Rash, 10/20/18) itching skin severe,feels hot all over body Medications: see eMAR Patient NPO?: Yes NPO Date: Oct 20, 2018 NPO Time: 00:00 Past Medical History Cardiovascular: Denies: HTN, CAD, TN, valve dz, arrhythmia, other Pulmonary: Denies: asthma, COPD, HYUN, other Gastrointestinal/Genitourinary: Reports: other - choledocholisthiasis; Denies: GERD, CRI, ESRD Neurologic/Psychiatric: Denies: dementia, CVA, depression/anxiety, TIA, other Endocrine: Reports: hypothyroidism; Denies: DM, steroids, other HEENT: Denies: cataract (L), cataract (R), glaucoma, H[place] (L), [place] (R), other Hematology/Immune: Denies: anemia, DVT, bleeding disorder, other Musculoskeletal/Integumentary: Reports: other - chronic back pain; Denies: OA, RA, DJD, DDD, edema PMH Narrative: as noted above PSxH Narrative: cholecystectomy, cervical surgery Anesthesia Pre-op Phys. Exam Physician Exam Last Vital Signs Date Time Temp Pulse Resp B/P (MAP) Pulse Ox O2 Delivery O2 Flow Rate FiO2 10/20/18 09:52 97.6 53 20 119/58 98 Room Air Constitutional: NAD Neurologic: other - alert & oriented Cardiovascular: RRR Respiratory: CTA Gastrointestinal: S/NT/ND Airway Exam Mallampati Score: Class II MO: full Neck: FROM TMD: > 3 FB ROM: full Teeth: intact Dentures: no upper, no lower Anesthesia Pre-op A/P Studies Pre-op Studies: EKG - NSR Risk Assessment & Plan Assessment: asa 2, ok proceed Plan: MAC Status Change Before Surgery: No Pre-Antibiotics Given Within 1 Hr of Incision: No Corazon Yung CRNA Oct 20, 2018 09:58
--- NOTE | 2018-10-20 10:30 | Short Stay Surgery H&P ---
History of Present Illness History of Present Illness Chief Complaint bile duct stent HPI Ling Whittaker is a 58 year old female who was admitted on for Gerd,Abdominal Pain Patient History Allergies: Coded Allergies: MEPERIDINE (Verified Allergy, Mild, Rash, 10/20/18) itching skin severe,feels hot all over body PAST MEDICAL HISTORY: (1) Abdominal pain (2) Cholecystitis with cholelithiasis (3) Choledocholithiasis Medication History Scheduled Lamotrigine* (Lamictal*), 300 MG ORAL DAILY, (Reported) Testosterone Enanthate (Xyosted), 50 MG SQ WEEKLY, (Reported) Thyroid* ([place] Thyroid*), 180 MG ORAL DAILY, (Reported) Review of Systems Cardiovascular: Reports: no symptoms Respiratory: Reports: no symptoms Skeletal: Reports: no symptoms Gastrointestinal: Reports: no symptoms Genitourinary: Reports: no symptoms Neurologic: Reports: no symptoms Endocrine: Reports: no symptoms Hematologic: Reports: no symptoms Physical Exam Vital Signs Last Vital Signs Date Time Temp Pulse Resp B/P (MAP) Pulse Ox O2 Delivery O2 Flow Rate FiO2 10/20/18 09:52 97.6 53 20 119/58 98 Room Air Skin: normal HENT: normal Heart: normal Lungs: normal Abdomen: normal Extremities: normal Plan Plan of Care ercp Attestation Are the patient's medical conditions optimized for surgery? Attestation Response: yes Osman Contreras MD Oct 20, 2018 10:30
--- NOTE | 2018-10-20 10:30 | Pre-Procedure Note/Attestation ---
Pre-Procedure Note/Attestation Complete Prior to Procedure Planned Procedure: not applicable Procedure Narrative: ercp Indications for Procedure Pre-Operative Diagnosis: bile duct stent Attestation I attest that I discussed the nature of the procedure; its benefits; risks and complications; and alternatives (and the risks and benefits of such alternatives ), prior to the procedure, with the patient (or the patient's legal outbound telemarketing representative). I attest that, if there was a reasonable possibility of needing a blood transfusion, the patient (or the patient's legal outbound telemarketing representative) was given the [facility] standardized written summary, pursuant to the Gene Aleksandra Blood Safety Act ([place] Health and Safety Code # 1645, as amended). I attest that I re-evaluated the patient just prior to the surgery and that there has been no change in the patient's H&P, except as documented below: Osman Contreras MD Oct 20, 2018 10:30
[2018-10-20 10:37] LABS: EOSINOPHILS % (AUTO) 1.9 % (0.0-3.0); HEMATOCRIT 43.6 % (37.0-47.0); HEMOGLOBIN 14.3 G/DL (12.0-16.0); LYMPHOCYTES % (AUTO) 37.7 % (20.0-45.0); MEAN CORPUSCULAR VOLUME 90 FL (80-99); MONOCYTES % (AUTO) 7.6 % (1.0-10.0); NEUTROPHILS % (AUTO) 51.8 % (45.0-75.0); PLATELET COUNT 240 K/UL (150-450); RED BLOOD COUNT 4.85 M/UL (4.20-5.40); RED CELL DISTRIBUTION WIDTH 12.2 % (11.6-14.8); WHITE BLOOD COUNT 4.6 K/UL (4.8-10.8)
[2018-10-20] MEDS ORDERED: Iothalamate Meglumine 60% 30ML INJ ONE ×2 (10:48→11:14)
[2018-10-20] MEDS ORDERED: Propofol 200mg/20ml IV ONE (11:00)
[2018-10-20 11:02] LABS: ANION GAP 8 mmol/L (5-15); BLOOD UREA NITROGEN 21 mg/dL (7-18); CALCIUM 9.4 MG/DL (8.5-10.1); CARBON DIOXIDE 28 MMOL/L (21-32); CHLORIDE 105 MMOL/L (98-107); CREATININE 0.8 MG/DL (0.55-1.30); SODIUM 141 MMOL/L (136-145)
[2018-10-20 11:07] LABS: ALANINE AMINOTRANSFERASE 28 U/L (12-78); ALBUMIN 3.8 G/DL (3.4-5.0); ALKALINE PHOSPHATASE 118 U/L (46-116); ASPARTATE AMINO TRANSFERASE 27 U/L (15-37); BILIRUBIN,TOTAL 0.3 MG/DL (0.2-1.0)
--- NOTE | 2018-10-20 11:34 | Endoscopy Procedure Note ---
Endoscopy Procedure Note General Indication for Procedure: biliary stent Procedures Performed: ERCP Operative Findings/Diagnosis: same Specimen: none Pt Tolerated Procedure Well: Yes Estimated Blood Loss: none Anesthesia Anesthesiologist: jono Anesthesia: MAC Inserted Devices Implant(s) used?: No GI Core Measures 50 yrs or older w/o bx or poly: Not Applicable 10yrs. F/U recommended: Not Applicable Osman Contreras MD Oct 20, 2018 11:34
[2018-10-20] MEDS ORDERED: Ketorolac 30mg Inj IV PRN (11:45)
--- NOTE | 2018-10-20 11:45 | Immediate Post-Op Evaluation ---
Immediate Post-Op Evalulation Immediate Post-Op Evalulation Procedure: ERCP with stent removal Date of Evaluation: Oct 20, 2018 Time of Evaluation: 11:36 IV Fluids: 0.9 NS 400ml Blood Pressure Systolic: 102 Blood Pressure Diastolic: 51 Pulse Rate: 56 Respiratory Rate: 15 O2 Sat by Pulse Oximetry: 98 Temperature (Fahrenheit): 97.2 Pain Score (1-10): 0 Nausea: No Vomiting: No Complications none Patient Status: awake, reacts, patent Hydration Status: adequate Given Within 1 Hr of Incision: Corazon Jacques CRNA Oct 20, 2018 11:45
--- NOTE | 2018-10-20 12:50 | 48 Hour Post Anesthesia Eval ---
Post Anesthesia Evaluation Procedure: ERCP with stent removal Date of Evaluation: Oct 20, 2018 Time of Evaluation: 12:49 Blood Pressure Systolic: 101 0: 55 Pulse Rate: 64 Respiratory Rate: 18 Temperature (Fahrenheit): 97.4 O2 Sat by Pulse Oximetry: 96 Airway: patent Nausea: No Vomiting: No Pain Intensity: 0 Hydration Status: adequate Cardiopulmonary Status: stable Mental Status/LOC: patient returned to baseline Follow-up Care/Observations: per GI Post-Anesthesia Complications: none Follow-up care needed: N/A Corazon Yung CRNA Oct 20, 2018 12:50
--- NOTE | 2018-10-20 15:16 | Diagnostic Imaging Report ---
Indication: Abdominal pain. ERCP. Findings: Fluoroscopically captured images of the right upper quadrant of the abdomen demonstrate an endoscope with cannulation of the common bile duct and injection of contrast material. The CBD and intrahepatic biliary ducts are dilated on multiple images. The indwelling CBD stent was removed. Impression: ERCP as above
--- NOTE | 2018-10-20 16:00 | Procedure Note ---
DATE OF PROCEDURE: 10/20/2018 SURGEON: Osman Contreras M.D. ANESTHESIA: Per Corazon BENSON. PROCEDURE: ERCP with stent removal, balloon occlusion cholangiogram, small stone removal. INSTRUMENT: Olympus adult flexible ERCP scope. INDICATION: Retained biliary stent. REASON FOR PROCEDURE: The procedure, risks, benefits, and possible consequences, including hemorrhage, aspiration, perforation and infection, and alternative treatments, were explained to the patient/legal guardian by Dr. Osman Contreras and the patient/legal guardian understood and accepted these risks. DESCRIPTION OF PROCEDURE: After informed consent was obtained and the patient was adequately sedated, Olympus ERCP scope was advanced from mouth into the second portion of the duodenum and retroflexion was performed in the stomach. The patient had a stent protruding through the common bile duct. Using a snare, the stent was successfully removed. Then using a balloon, common bile duct was selectively cannulated. Initial cholangiogram showed dilated common bile duct to about 15 mm. There was a small sludge defect in the distal common bile duct. We inflated the balloon, sweep the duct multiple times, some sludge was removed. No obvious stones. Then post balloon occlusion cholangiogram showed no further filling defects in the common bile duct. At this time, the balloon was removed and procedure was terminated. SUMMARY OF FINDINGS: 1. Dilated CBD to about 15 mm. 2. Status post ERCP, stent removal, balloon occlusion cholangiogram, and balloon-assisted sludge removal. RECOMMENDATIONS: The patient to be observed in the recovery and if stable, to be discharged. Follow as an outpatient. Osman Contreras M.D. DR: TIFFANIE JOB#: [id number] CC:
== END 2018-10-20 14:00 | disposition home or self-care (01) ==
LOC: GAS 08:31
DX: Z46.59 Encounter for fitting and adjustment of other gastrointestinal appliance and device (principal); Z79.899 Other long term (current) drug therapy; K21.9 Gastro-esophageal reflux disease without esophagitis; Z88.8 Allergy status to other drugs, medicaments and biological substances
CPT/HCPCS: 36415; 43264; 43275; 43277; 74328; 76000; 80053; 85025; J2250; J2405; J2704; J3010; Q9961; 94003; 94150

== ENCOUNTER 2018-11-09 13:54 | Outpatient (CLI) | payer MEDICARE ==
[~2018-11-09 13:54] MED LIST changes: +XYOSTED50 MG/0.5 SQ
--- NOTE | 2018-11-09 14:24 | General Progress Note ---
Assessment/Plan Problem List: (1) Abdominal pain ICD Codes: R10.9 - Unspecified abdominal pain SNOMED: 98384053 (2) Cholecystitis with cholelithiasis ICD Codes: K80.10 - Calculus of gallbladder with chronic cholecystitis without obstruction SNOMED: 81410691, 578342115 (3) Choledocholithiasis ICD Codes: K80.50 - Calculus of bile duct without cholangitis or cholecystitis without obstruction SNOMED: 514793779 Assessment/Plan: s/p ERCP plan colonoscopy Subjective ROS Limited/Unobtainable: Yes Allergies: Coded Allergies: MEPERIDINE (Verified Allergy, Mild, Rash, 10/20/18) itching skin severe,feels hot all over body Objective General Appearance: alert EENT: normal ENT inspection Neck: supple Cardiovascular: normal rate Respiratory/Chest: lungs clear Abdomen: normal bowel sounds, non tender, soft Extremities: non-tender Osman Contreras MD Nov 09, 2018 14:24
== END 2018-11-09 15:54 | disposition home or self-care (01) ==
LOC: PAN 13:54
DX: R10.9 Unspecified abdominal pain (principal); K80.10 Calculus of gallbladder with chronic cholecystitis without obstruction; K80.50 Calculus of bile duct without cholangitis or cholecystitis without obstruction; Z88.8 Allergy status to other drugs, medicaments and biological substances
CPT/HCPCS: 99212

== ENCOUNTER 2018-11-22 08:54 | Day surgery (SDC) | payer MEDICARE ==
[~2018-11-22] VITALS: Ht 177.8 cm; Wt 77.1 kg
[2018-11-22] VITALS (9 sets, daily range): BP systolic 85–110; BP diastolic 50–60
[2018-11-22] MEDS ORDERED: LR 1000ml 1,000 ML IVLG SCH (09:25)
--- NOTE | 2018-11-22 09:25 | Anethesia Preoperative Eval ---
Anesthesia Pre-op PMH/ROS General Date of Evaluation: Nov 22, 2018 Anesthesiologist: Zachary ASA Score: ASA 2 Mallampati Score Class I : Soft palate, uvula, fauces, pillars visible Class II: Soft palate, uvula, fauces visible Class III: Soft palate, base of uvula visible Class IV: Only hard plate visible Mallampati Classification: Class II Surgeon: Diane Diagnosis: screening Surgical Procedure: colonoscopy Anesthesia History: none Family History: no anesthesia problems Allergies: Coded Allergies: MEPERIDINE (Verified Allergy, Mild, Rash, 10/20/18) itching skin severe,feels hot all over body Medications: see eMAR Patient NPO?: Yes NPO Date: Nov 21, 2018 NPO Time: 22:00 Past Medical History Cardiovascular: Denies: HTN, CAD, [place], valve dz, arrhythmia, other Pulmonary: Denies: asthma, COPD, HYUN, other Gastrointestinal/Genitourinary: Denies: GERD, CRI, ESRD, other Neurologic/Psychiatric: Reports: depression/anxiety; Denies: dementia, CVA, TIA, other Endocrine: Reports: hypothyroidism; Denies: DM, steroids, other HEENT: Denies: cataract (L), cataract (R), glaucoma, NEWHALEN (L), NEWHALEN (R), other Hematology/Immune: Denies: anemia, DVT, bleeding disorder, other Musculoskeletal/Integumentary: Denies: OA, RA, DJD, DDD, edema, other PSxH Narrative: siddhartha, c-spine sx Anesthesia Pre-op Phys. Exam Physician Exam see chart Constitutional: NAD Cardiovascular: RRR Respiratory: CTA Airway Exam Mallampati Score: Class II MO: full ROM: full Anesthesia Pre-op A/P Labs see chart Studies Pre-op Studies: EKG - sr Risk Assessment & Plan Assessment: ASA II Plan: MAC Status Change Before Surgery: No Pre-Antibiotics Drug: N/A Varsha Rob MD Nov 22, 2018 09:24
[2018-11-22] MEDS ORDERED: DiphenhydrAMINE 50mg/ml Inj IVP PRN (09:30)
--- NOTE | 2018-11-22 09:45 | Pre-Procedure Note/Attestation ---
Pre-Procedure Note/Attestation Complete Prior to Procedure Planned Procedure: not applicable Procedure Narrative: colonoscopy Indications for Procedure Pre-Operative Diagnosis: screening Attestation I attest that I discussed the nature of the procedure; its benefits; risks and complications; and alternatives (and the risks and benefits of such alternatives ), prior to the procedure, with the patient (or the patient's legal home furnishings sales representative). I attest that, if there was a reasonable possibility of needing a blood transfusion, the patient (or the patient's legal home furnishings sales representative) was given the [facility] standardized written summary, pursuant to the Gene [place]grass Blood Safety Act ([place] Health and Safety Code # 1645, as amended). I attest that I re-evaluated the patient just prior to the surgery and that there has been no change in the patient's H&P, except as documented below: Osman Contreras MD Nov 22, 2018 09:45
--- NOTE | 2018-11-22 09:45 | Short Stay Surgery H&P ---
History of Present Illness History of Present Illness Chief Complaint see recent office note HPI Ling Whittaker is a 58 year old female who was admitted on for Colon Screening Patient History Allergies: Coded Allergies: MEPERIDINE (Verified Allergy, Mild, Rash, 10/20/18) itching skin severe,feels hot all over body Medication History Scheduled Lamotrigine* (Lamictal*), 300 MG ORAL DAILY, (Reported) Testosterone Enanthate (Xyosted), 50 MG SQ WEEKLY, (Reported) Thyroid* ([place] Thyroid*), 180 MG ORAL DAILY, (Reported) Physical Exam Vital Signs Last Vital Signs Date Time Temp Pulse Resp B/P (MAP) Pulse Ox O2 Delivery O2 Flow Rate FiO2 11/22/18 09:43 Room Air 11/22/18 09:26 98.1 63 18 106/55 97 Plan Attestation Are the patient's medical conditions optimized for surgery? Osman Contreras MD Nov 22, 2018 09:45
--- NOTE | 2018-11-22 09:46 | Short Stay Surgery H&P ---
History of Present Illness History of Present Illness Chief Complaint screening colon HPI Ling Whittaker is a 58 year old female who was admitted on for Colon Screening Patient History Allergies: Coded Allergies: MEPERIDINE (Verified Allergy, Mild, Rash, 10/20/18) itching skin severe,feels hot all over body Medication History Scheduled Lamotrigine* (Lamictal*), 300 MG ORAL DAILY, (Reported) Testosterone Enanthate (Xyosted), 50 MG SQ WEEKLY, (Reported) Thyroid* ([place] Thyroid*), 180 MG ORAL DAILY, (Reported) Review of Systems Cardiovascular: Reports: no symptoms Respiratory: Reports: no symptoms Skeletal: Reports: no symptoms Gastrointestinal: Reports: no symptoms Genitourinary: Reports: no symptoms Neurologic: Reports: no symptoms Endocrine: Reports: no symptoms Physical Exam Vital Signs Last Vital Signs Date Time Temp Pulse Resp B/P (MAP) Pulse Ox O2 Delivery O2 Flow Rate FiO2 11/22/18 09:43 Room Air 11/22/18 09:26 98.1 63 18 106/55 97 Skin: normal HENT: normal Heart: normal Lungs: normal Abdomen: normal Extremities: normal Plan Plan of Care colonoscopy Attestation Are the patient's medical conditions optimized for surgery? Attestation Response: yes Osman Contreras MD Nov 22, 2018 09:46
[2018-11-22] MEDS ORDERED: LR 1000ml ONE (10:00)
[2018-11-22] MEDS ORDERED: Lidocaine 1% MPF 10mg/ml 5ml ONE (10:00)
[2018-11-22] MEDS ORDERED: Propofol 200mg/20ml IV ONE (10:00)
--- NOTE | 2018-11-22 10:16 | Endoscopy Procedure Note ---
Endoscopy Procedure Note General Indication for Procedure: screening Procedures Performed: colonoscopy Operative Findings/Diagnosis: hemorrhoids Specimen: none Pt Tolerated Procedure Well: Yes Estimated Blood Loss: none Anesthesia Anesthesiologist: kathie Anesthesia: MAC Inserted Devices Implant(s) used?: No Quality Quality of Bowel Preparation: Fair Did scope reach the cecum?: Yes Was there any complications?: No GI Core Measures 50 yrs or older w/o bx or poly: No 10yrs. F/U recommended: Yes If not recommended, why?: Above average risk 18 years or older w/prev. colo: No Osman Contreras MD Nov 22, 2018 10:16
--- NOTE | 2018-11-22 10:18 | Immediate Post-Op Evaluation ---
Immediate Post-Op Evalulation Immediate Post-Op Evalulation Procedure: colonoscopy Date of Evaluation: Nov 22, 2018 Time of Evaluation: 10:20 IV Fluids: 200 Blood Products: 0 Estimated Blood Loss: 0 Urinary Output: 0 Blood Pressure Systolic: 95 Blood Pressure Diastolic: 52 Pulse Rate: 60 Respiratory Rate: 16 O2 Sat by Pulse Oximetry: 100 Temperature (Fahrenheit): 97 Pain Score (1-10): 0 Nausea: No Vomiting: No Complications 0 Patient Status: awake, reacts, patent, none Hydration Status: adequate Drug: N/A Varsha Rob MD Nov 22, 2018 10:18
--- NOTE | 2018-11-22 10:19 | 48 Hour Post Anesthesia Eval ---
Post Anesthesia Evaluation Procedure: colonoscopy Date of Evaluation: Nov 22, 2018 Airway: patent Nausea: No Vomiting: No Pain Intensity: 0 Hydration Status: adequate Cardiopulmonary Status: at baseline Mental Status/LOC: patient returned to baseline Post-Anesthesia Complications: 0 Follow-up care needed: ready to discharge Varsha Rob MD Nov 22, 2018 10:19
--- NOTE | 2018-11-22 15:45 | Procedure Note ---
DATE OF PROCEDURE: 11/22/2018 SURGEON: Osman Contreras M.D. PROCEDURE: Colonoscopy. ANESTHESIA: Per Dr. Sharma. INSTRUMENT: Olympus adult flexible colonoscope. INDICATION: Screening colonoscopy. REASON FOR PROCEDURE: The procedure, risks, benefits, and possible consequences, including hemorrhage, aspiration, perforation and infection, and alternative treatments, were explained to the patient/legal guardian by Dr. Osman Contreras and the patient/legal guardian understood and accepted these risks. PROCEDURE IN DETAIL: After informed consent was obtained and the patient was adequately sedated. First rectal exam was performed, which was positive for internal hemorrhoids. Then, the scope was advanced from the rectum into the cecum documented by appendiceal orifice, ileocecal valve, and right upper quadrant palpation. Quality of prep was fair. The patient had no polyp, but again the quality of prep was relatively fair. There was a lot of fluid in the colon, lot of them semisolid, greenish. We washed and aspirated as best as we could. I would say about 15% of the colonic mucosa was not fully examined given this prep. But we did not see any obvious bleeding. No obvious large polyp or small polyp was seen. Retroflexion of rectum was performed, which showed evidence of small internal hemorrhoids. SUMMARY OF FINDINGS: 1. Fair colonic prep. 2. Internal hemorrhoids. RECOMMENDATIONS: 1. Treat for hemorrhoids if become symptomatic. 2. We recommend repeat colonoscopy at least in 5 years. Osman Contreras M.D. DR: YNAG JOB#: [id number] CC:
== END 2018-11-22 12:00 | disposition home or self-care (01) ==
LOC: GAS 08:54
DX: Z12.11 Encounter for screening for malignant neoplasm of colon (principal); K64.8 Other hemorrhoids; Z88.8 Allergy status to other drugs, medicaments and biological substances; Z79.899 Other long term (current) drug therapy; E03.9 Hypothyroidism, unspecified; F32.9 Major depressive disorder, single episode, unspecified; F41.9 Anxiety disorder, unspecified; Z90.49 Acquired absence of other specified parts of digestive tract
CPT/HCPCS: G0121; J2704; 94003; 94150